=== PATIENT | male | born 1965 | race American Indian/Alaskan Native ===

== ENCOUNTER 2017-12-02 20:41 | Emergency (ER) | payer OTHER ==
[2017-12-02 20:54] VITALS: BP 128/91
[2017-12-02 21:21] LABS: Basophils # (Auto) 0.1 K/mm3 (0.0-0.1); Basophils % (Auto) 0.7 % (0.0-1.8); Eosinophils # (Auto) 0.2 K/mm3 (0.0-0.4); Eosinophils % (Auto) 2.7 % (0.0-4.3); Hematocrit 42.4 % (35.5-45.6); Hemoglobin 14.6 gm/dl (11.8-15.2); Lymphocytes # (Auto) 2.1 K/mm3 (1.2-5.4); Lymphocytes % (Auto) 28.9 % (13.4-35.0); Mean Corpuscular HGB Conc 35 % (32-34); Mean Corpuscular Hemoglobin 31 pg (28-32); Mean Corpuscular Volume 90 fl (84-94); Monocytes # (Auto) 0.3 K/mm3 (0.0-0.8); Monocytes % (Auto) 4.6 % (0.0-7.3); Platelet Count 269 K/mm3 (140-440); Red Blood Count 4.71 M/mm3 (3.65-5.03); Red Cell Distribution Width 12.4 % (13.2-15.2)
[2017-12-02 21:32] LABS: BUN/Creatinine Ratio 13; Blood Urea Nitrogen 16 mg/dL (9-20); Calcium 9.6 mg/dL (8.4-10.2); Hemolysis Index 8
[2017-12-02 22:04] LABS: Bilirubin,Urine NEG (Negative); Blood,Urine NEG (Negative); Color,Urine Straw (Yellow); Mucus,Urine FEW /HPF; Protein,Urine <15 mg/dL mg/dL (Negative); Urobilinogen,Urine < 2.0 mg/dL (<2.0); WBC,Urine < 1.0 /HPF (0.0-6.0)
[2017-12-03] MEDS ORDERED: NACL 0.9% 1000 ML 1,000 ML IV ONE (02:28)
[2017-12-03] MEDS ORDERED: HumuLIN R IV ONE ×2 (02:29→05:59)
[2017-12-03] MEDS ORDERED: NACL 0.9% 1000 ML 2,000 ML IV ONE (02:53)
--- NOTE | 2017-12-03 03:08 | Emergency Department Report ---
HPI - General Chief Complaint: Weakness Time Seen by Provider: 12/03/17 00:50 - HPI HPI: The patient is a 52-year-old male who presents for evaluation of lightheadedness. The patient reports 1 week of lightheadedness, severe, exacerbated with exertion or standing, improved with lying down, and associated with dryness in the mouth, polyuria, and weakness. The patient denies fever, neck pain, parasthesias, dyspnea, cough, hemoptysis, palpitations, dizziness, syncope, unilateral leg swelling, calf muscle pain. Patient also denies cocaine or other stimulant use, history of DVT or PE, recent immobilization, or history of cancer. ED Past Medical Hx - Past Medical History Previous Medical History?: Yes Hx Diabetes: Yes - Surgical History Past Surgical History?: No - Social History Smoking Status: Current Every Day Smoker Substance Use Type: Alcohol, Marijuana ED Review of Systems ROS: Stated complaint: DEHYDRATION/WEAK Other details as noted in HPI Constitutional: reports lightheadedness denies: fever ENT: denies: throat or neck pain Respiratory: denies: cough, shortness of breath Cardiovascular: denies: chest pain Endocrine: Reports polyuria denies unexplained weight loss or gain Gastrointestinal: denies: abdominal pain, nausea Genitourinary: denies: dysuria Musculoskeletal: denies: leg swelling Skin: denies: rash Neurological: denies: headache Hematological/Lymphatic: denies: easy bleeding or easy bruising Psych: denies sadness or hopelessness Physical Exam - Physical Exam Vital Signs: Vital Signs 12/02/17 12/02/17 20:51 20:53 Temperature 98.4 F 98.4 F Pulse Rate 83 83 Respiratory 16 16 Rate Blood Pressure 128/91 Blood Pressure 128/91 [Right] O2 Sat by Pulse 100 100 Oximetry Physical Exam: General: well-nourished, well-developed, no acute distress Head: Normocephalic, atraumatic Eyes: normal sclera ENT: Mucous membranes are pale and dry Neck: No neck stiffness, no cervical adenopathy Respiratory: Breath sounds equal bilaterally, no wheezing, rales, or rhonchi Cardio: S1 and S2 present, no murmurs, rubs, gallops, capillary refill is delayed Abdomen: Normoactive bowel sounds, soft abdomen, no rigidity, no guarding or rebound tenderness Chest WALL/Back: No tenderness to palpation of the chest wall, no CVA tenderness with percussion Musc: No pitting edema Skin: No rash Neuro: no facial drooping, normal speech Psych: Normal affect ED Course Vital Signs 12/02/17 12/02/17 20:51 20:53 Temperature 98.4 F 98.4 F Pulse Rate 83 83 Respiratory 16 16 Rate Blood Pressure 128/91 Blood Pressure 128/91 [Right] O2 Sat by Pulse 100 100 Oximetry ED Medical Decision Making - Lab Data Result diagrams: 12/02/17 21:05 12/02/17 21:05 - Medical Decision Making The patient was seen and examined by myself. The patient is placed on a panel monitor and continuous pulse ox. On initial evaluation, the patient was found to be in no distress. Evaluation orders are placed. IV access is established and the patient is given 1 L normal saline fluid bolus for treatment of his dehydration. Lab results revealed elevated blood sugar of 524, and otherwise labs were non-concerning including WBC, hemoglobin, hematocrit, electrolytes, renal function, LFTs, lipase, and urinalysis. The patient is given IV insulin for treatment of hyperglycemia. The patient was reevaluated and reported that their symptoms were markedly improved. The patient is stable for discharge with outpatient follow-up. The patient is given follow-up and return instructions. The patient expressed understanding and agreed with the plan. The patient is discharged in stable condition. Critical care attestation.: If time is entered above; I have spent that time in minutes in the direct care of this critically ill patient, excluding procedure time. ED Disposition Clinical Impression: Dehydration, Acute hyperglycemia, Orthostatic lightheadedness Disposition: - TO HOME OR SELFCARE Is pt being admited?: No Does the pt Need Aspirin: No Condition: Fair Instructions: Diabetic Hyperglycemia (ED), Dehydration (ED) Referrals: PRIMARY CARE, [Primary Care Provider] - 3-5 Days Time of Disposition: 05:58
== END 2017-12-03 06:16 | disposition home or self-care (01) ==
LOC: ED 20:41
DX: E86.0 Dehydration (principal); E11.65 Type 2 diabetes mellitus with hyperglycemia; F17.200 Nicotine dependence, unspecified, uncomplicated; F12.10 Cannabis abuse, uncomplicated
CPT/HCPCS: 36415; 80048; 81001; 82962; 85025; 96361; 96374; 96376; 99284; J7030; J1815

== ENCOUNTER 2017-12-05 13:49 | Emergency (ER) | payer OTHER ==
[2017-12-05 14:38] LABS: Basophils % (Auto) 0.6 % (0.0-1.8); Eosinophils # (Auto) 0.1 K/mm3 (0.0-0.4); Eosinophils % (Auto) 1.8 % (0.0-4.3); Hematocrit 37.1 % (35.5-45.6); Hemoglobin 12.9 gm/dl (11.8-15.2); Lymphocytes # (Auto) 1.2 K/mm3 (1.2-5.4); Lymphocytes % (Auto) 19.5 % (13.4-35.0); Mean Corpuscular HGB Conc 35 % (32-34); Mean Corpuscular Hemoglobin 32 pg (28-32); Mean Corpuscular Volume 91 fl (84-94); Monocytes # (Auto) 0.3 K/mm3 (0.0-0.8); Monocytes % (Auto) 5.3 % (0.0-7.3); Platelet Count 220 K/mm3 (140-440); Red Blood Count 4.08 M/mm3 (3.65-5.03); Red Cell Distribution Width 12.5 % (13.2-15.2)
[2017-12-05 14:57] LABS: BUN/Creatinine Ratio 11; Blood Urea Nitrogen 12 mg/dL (9-20); Calcium 8.8 mg/dL (8.4-10.2); Hemolysis Index 7
[2017-12-05 15:17] LABS: Bilirubin,Urine NEG (Negative); Blood,Urine NEG (Negative); Color,Urine Straw (Yellow); Protein,Urine <15 mg/dL mg/dL (Negative); WBC,Urine < 1.0 /HPF (0.0-6.0)
[2017-12-05] MEDS ORDERED: HumuLIN R IV ONE ×2 (16:35→19:14)
[2017-12-05] MEDS ORDERED: NACL 0.9% 1000 ML 1,000 ML IV ONE ×3 (16:35→19:14)
--- NOTE | 2017-12-05 16:47 | Emergency Department Report ---
- General Chief complaint: Weakness Stated complaint: DEHYDRATED Time Seen by Provider: 12/05/17 16:35 Source: patient, old records reviewed Mode of arrival: Ambulatory Limitations: No Limitations - History of Present Illness Initial comments: 52-year-old male with a past medical history diabetes type 2 (on insulin) presents to the hospital with complaints of generalized weakness, decreased appetite, polyuria, increased frequency for the past week. Patient was here on December 03 with hyperglycemia. Glucose in the 500's at that time. He received insulin and IV fluids and was discharged home. Patient states at that time he was taking his insulin prior to presenting to the ED. However, the past 2 days he has not taken any insulin because he has not been eating due to lack of appetite. Patient is supposed to take his 70/30 insulin 35 units with dinner. He does not check his sugars will monitor his response to treatment. He does not follow up with a primary care doctor. Patient denies nausea, vomiting, fever, or dysuria. Does complain of some mild paresthesias to feet. - Related Data Previous Rx's Medication Instructions Recorded Last Taken Type Blood Sugar Diagnostic [Test 1 each MC PRN #90 strip 12/05/17 Unknown Rx Strips] Insulin NPH/Regular [Novolin 70/30] 30 unit SQ BIDDIAB #30 day 12/05/17 Unknown Rx Syringe and Needle,Insulin,1Ml 1 each MC BID #60 disp.syrin 12/05/17 Unknown Rx [Insulin Syringe/Needle 1 ML] Allergies Allergy/AdvReac Type Severity Reaction Status Date / Time No Known Allergies Allergy Unverified 12/02/17 20:55 ED Review of Systems ROS: Stated complaint: DEHYDRATED Other details as noted in HPI Comment: All other systems reviewed and negative ED Past Medical Hx - Past Medical History Hx Diabetes: Yes - Surgical History Past Surgical History?: No - Social History Smoking Status: Current Every Day Smoker Substance Use Type: Alcohol - Medications Home Medications: Home Medications Medication Instructions Recorded Confirmed Last Taken Type Blood Sugar Diagnostic [Test 1 each MC PRN #90 strip 12/05/17 Unknown Rx Strips] Insulin NPH/Regular [Novolin 70/30] 30 unit SQ BIDDIAB #30 day 12/05/17 Unknown Rx Syringe and Needle,Insulin,1Ml 1 each MC BID #60 disp.syrin 12/05/17 Unknown Rx [Insulin Syringe/Needle 1 ML] ED Physical Exam - General Limitations: No Limitations - Other Other exam information: General: No limitations, patient is alert in no acute distress Head exam: Atraumatic, normocephalic Eyes exam: Normal appearance, ENT: Moist mucous membrane, dry mucous membranes Neck exam: Normal inspection, full range of motion Respiratory exam: Clear to auscultation bilateral, no wheezes, rales, crackles Cardiovascular: Normal rate and rhythm, normal heart sounds Abdomen: Soft, nondistended, and nontender, with normal bowel sounds, no rebound, or guarding Extremity: Full range of motion normal inspection no deformity Back: Normal Inspection, full range of motion, no tenderness Neurologic: Alert, oriented x3, cranial nerves intact, no motor or sensory deficit Psychiatric: normal affect, normal mood Skin: Warm, dry, intact ED Course Vital Signs 12/05/17 12/05/17 12/05/17 14:04 16:12 16:58 Temperature 98.6 F 98.3 F Pulse Rate 81 75 Respiratory 20 15 Rate Blood Pressure 127/79 Blood Pressure 185/95 [Left] O2 Sat by Pulse 97 100 99 Oximetry 12/05/17 12/05/17 12/05/17 17:00 17:16 17:19 Temperature Pulse Rate 71 Respiratory 15 15 Rate Blood Pressure 185/93 173/102 Blood Pressure 173/102 [Left] O2 Sat by Pulse 99 99 100 Oximetry 12/05/17 12/05/17 12/05/17 17:30 17:46 18:00 Temperature Pulse Rate Respiratory Rate Blood Pressure 173/102 173/102 185/101 Blood Pressure [Left] O2 Sat by Pulse 99 100 99 Oximetry 12/05/17 12/05/17 12/05/17 18:16 18:30 18:46 Temperature Pulse Rate Respiratory Rate Blood Pressure 185/101 185/101 185/101 Blood Pressure [Left] O2 Sat by Pulse 100 99 99 Oximetry 12/05/17 12/05/17 12/05/17 18:57 19:00 19:16 Temperature Pulse Rate 61 Respiratory 15 Rate Blood Pressure 182/97 182/97 Blood Pressure 170/109 [Left] O2 Sat by Pulse 98 100 98 Oximetry 12/05/17 19:44 Temperature Pulse Rate Respiratory Rate Blood Pressure 127/84 Blood Pressure [Left] O2 Sat by Pulse 98 Oximetry ED Medical Decision Making - Lab Data Result diagrams: 12/05/17 14:07 12/05/17 14:07 Lab Results 12/05/17 12/05/17 12/05/17 Range/Units 14:02 14:07 14:07 WBC 6.4 (4.5-11.0) K/mm3 RBC 4.08 (3.65-5.03) M/mm3 Hgb 12.9 (11.8-15.2) gm/dl Hct 37.1 (35.5-45.6) % MCV 91 (84-94) fl MCH 32 (28-32) pg MCHC 35 H (32-34) % RDW 12.5 L (13.2-15.2) % Plt Count 220 (140-440) K/mm3 Lymph % (Auto) 19.5 (13.4-35.0) % [place] % (Auto) 5.3 (0.0-7.3) % Eos % (Auto) 1.8 (0.0-4.3) % Baso % (Auto) 0.6 (0.0-1.8) % Lymph # 1.2 (1.2-5.4) K/mm3 [place]ps # 0.3 (0.0-0.8) K/mm3 Eos # 0.1 (0.0-0.4) K/mm3 Baso # 0.0 (0.0-0.1) K/mm3 Seg Neutrophils % 72.8 H (40.0-70.0) % Seg Neutrophils # 4.7 (1.8-7.7) K/mm3 VBG pH (7.320-7.420) Sodium 124 L (137-145) mmol/L Potassium 3.8 D (3.6-5.0) mmol/L Chloride 82.2 L (98-107) mmol/L Carbon Dioxide 29 (22-30) mmol/L Anion Gap 17 mmol/L BUN 12 (9-20) mg/dL Creatinine 1.1 (0.8-1.5) mg/dL Estimated GFR > 60 ml/min BUN/Creatinine Ratio 11 % Glucose 793 H* (75-100) mg/dL POC Glucose > 500 H (70-105) Calcium 8.8 (8.4-10.2) mg/dL Urine Color (Yellow) Urine Turbidity (Clear) Urine pH (5.0-7.0) Ur Specific [place] (1.003-1.030) Urine Protein (Negative) mg/dL Urine Glucose (UA) (Negative) mg/dL Urine Ketones (Negative) mg/dL Urine Blood (Negative) Urine Nitrite (Negative) Urine Bilirubin (Negative) Urine Urobilinogen (<2.0) mg/dL Ur Leukocyte Esterase (Negative) Urine WBC (Auto) (0.0-6.0) /HPF Urine RBC (Auto) (0.0-6.0) /HPF 12/05/17 12/05/17 12/05/17 Range/Units 14:07 15:00 18:39 WBC (4.5-11.0) K/mm3 RBC (3.65-5.03) M/mm3 Hgb (11.8-15.2) gm/dl Hct (35.5-45.6) % MCV (84-94) fl MCH (28-32) pg MCHC (32-34) % RDW (13.2-15.2) % Plt Count (140-440) K/mm3 Lymph % (Auto) (13.4-35.0) % [place] % (Auto) (0.0-7.3) % Eos % (Auto) (0.0-4.3) % Baso % (Auto) (0.0-1.8) % Lymph # (1.2-5.4) K/mm3 [place] # (0.0-0.8) K/mm3 Eos # (0.0-0.4) K/mm3 Baso # (0.0-0.1) K/mm3 Seg Neutrophils % (40.0-70.0) % Seg Neutrophils # (1.8-7.7) K/mm3 VBG pH 7.376 (7.320-7.420) Sodium (137-145) mmol/L Potassium (3.6-5.0) mmol/L Chloride (98-107) mmol/L Carbon Dioxide (22-30) mmol/L Anion Gap mmol/L BUN (9-20) mg/dL Creatinine (0.8-1.5) mg/dL Estimated GFR ml/min BUN/Creatinine Ratio % Glucose (75-100) mg/dL POC Glucose 347 H (70-105) Calcium (8.4-10.2) mg/dL Urine Color Straw (Yellow) Urine Turbidity Clear (Clear) Urine pH 6.0 (5.0-7.0) Ur Specific [place] 1.029 (1.003-1.030) Urine Protein <15 mg/dl (Negative) mg/dL Urine Glucose (UA) >=500 (Negative) mg/dL Urine Ketones Neg (Negative) mg/dL Urine Blood Neg (Negative) Urine Nitrite Neg (Negative) Urine Bilirubin Neg (Negative) Urine Urobilinogen 2.0 (<2.0) mg/dL Ur Leukocyte Esterase Neg (Negative) Urine WBC (Auto) < 1.0 (0.0-6.0) /HPF Urine RBC (Auto) 1.0 (0.0-6.0) /HPF - Medical Decision Making Hyperglycemia secondary to insulin noncompliance Patient is not in DKA Glucose improves with normal saline boluses and a total of 22 units of insulin to the 100 range Pt should be taking bid dosing of 70/30 insulin, This was discussed with hospitalist Dr. Mari who suggested 30 units BID. Pt counseled on the importance of being compliant with medication, importance of checking his sugar, importance of compliance with diabetic diet, and importance of follow-up for further monitoring and medication adjustment. It is likely also started to develop a diabetic neuropathy. Patient will be discharged home. Elevated bp reading Pt has several elevated blood pressure measurements documented by the nurse however, patient presented with normal blood pressure and at the end of treatment he has normal blood pressures without BP treatment therefore I question the validity of these readings - Differential Diagnosis DKA, hyperglycemia, HNNK, medication noncompliance Critical Care Time: No Critical care attestation.: If time is entered above; I have spent that time in minutes in the direct care of this critically ill patient, excluding procedure time. ED Disposition Clinical Impression: Uncontrolled diabetes mellitus, Noncompliance with medication regimen, Dehydration Disposition: DC-01 TO HOME OR SELFCARE Is pt being admited?: No Does the pt Need Aspirin: No Condition: Stable Instructions: Diabetes Mellitus Type 2 in Adults (ED) Additional Instructions: Take the medication as prescribed. Follow up with the doctor or clinic provided. Return if symptoms worsen as indicated by your discharge instructions. Continue to monitor your sugars at home and eat a diabetic appropriate diet. Take your insulin 70/30 twice a day Prescriptions: Blood Sugar Diagnostic [Test Strips] 1 each PRN #90 strip Insulin NPH/Regular [Novolin 70/30] 30 unit SQ BIDDIAB #30 day Syringe and Needle,Insulin,1Ml [Insulin Syringe/Needle 1 ML] 1 each BID #60 disp.[email or web address] Referrals: [facility] [Provider Group] - 2-3 Days NANETTE SANTANA MD [Staff Physician] - 2-3 Days Time of Disposition: 22:14
[2017-12-06 00:39] VITALS: BP 127/88
== END 2017-12-05 23:00 | disposition home or self-care (01) ==
LOC: ED 13:49
DX: E86.0 Dehydration (principal); E11.9 Type 2 diabetes mellitus without complications; F17.200 Nicotine dependence, unspecified, uncomplicated
CPT/HCPCS: 36415; 80048; 81001; 82805; 82962; 85025; 96361; 96374; 96376; 99284; J7030; J1815

== ENCOUNTER 2020-03-28 18:58 | Inpatient (IN) | payer OTHER ==
--- NOTE | 2020-03-28 19:17 | Emergency Department Report ---
Blank Doc - Documentation Documentation: [id number] with chest pain, SOB, and n/v. This initial assessment/diagnostic orders/clinical plan/treatment(s) is/are subject to change based on patient's health status, clinical progression and re- assessment by fellow clinical providers in the ED. Further treatment and workup at subsequent clinical providers discretion. Patient/guardians urged not to elope from the ED as their condition may be serious if not clinically assessed and managed. Initial orders include: 1- Patient sent to [facility] for further evaluation and treatment 2- cardiac workup
[2020-03-28 19:48] LABS: Basophils % (Auto) 0.3 % (0.0-1.8); Eosinophils % (Auto) 0.2 % (0.0-4.3); Hematocrit 41.8 % (35.5-45.6); Hemoglobin 14.5 gm/dl (11.8-15.2); Lymphocytes % (Auto) 9.2 % (13.4-35.0); Mean Corpuscular HGB Conc 35 % (32-34); Mean Corpuscular Volume 93 fl (84-94); Monocytes # (Auto) 0.5 K/mm3 (0.0-0.8); Monocytes % (Auto) 4.6 % (0.0-7.3); Platelet Count 263 K/mm3 (140-440); Red Blood Count 4.51 M/mm3 (3.65-5.03); Red Cell Distribution Width 12.7 % (13.2-15.2)
[2020-03-28 19:59] LABS: INR 1.03 (0.87-1.13)
[2020-03-28 20:00] LABS: Partial Thromboplastin Time 26.7 Sec. (24.2-36.6)
--- NOTE | 2020-03-28 20:00 | XRay Report ---
CHEST 1 VIEW INDICATION: Chest Pain. COMPARISON: 12/17/2017. FINDINGS: Support devices: None. Heart: Normal. Lungs/Pleura: No acute pulmonary or pleural findings. IMPRESSION: 1. No acute findings. Signer Name: Jamie Monroe MD Signed: 03/28/2020 7:56 PM Workstation Name: [id number]
[2020-03-28 20:12] LABS: Calcium 9.2 mg/dL (8.4-10.2)
[2020-03-29] MEDS ORDERED: SODIUM CHLORIDE 0.9% 1000 ML 1,000 ML IV ONE ×4 (09:03→21:14)
[2020-03-29] MEDS ORDERED: ONDANSETRON 4 MG/2 ML INJ ONE (10:11)
[2020-03-29] MEDS ORDERED: ONDANSETRON 4 MG/2 ML INJ IV ONE ×2 (10:25→21:08)
--- NOTE | 2020-03-29 11:41 | Cat Scan Report ---
CT ABDOMEN AND PELVIS WITHOUT CONTRAST INDICATION / CLINICAL INFORMATION: flank and right pelvic pain. TECHNIQUE: Axial CT images were obtained through the abdomen and pelvis without IV contrast. All CT scans at this location are performed using CT dose reduction for ALARA by means of automated exposure control. COMPARISON: None FINDINGS: LOWER CHEST: Unremarkable LIVER: Unremarkable GALLBLADDER/BILIARY TREE: Unremarkable PANCREAS: Unremarkable SPLEEN: Unremarkable ADRENALS: Unremarkable KIDNEYS / URETER: Tiny nonobstructing right renal calculus is present. There is a small left renal hy podensity, which is too small to further characterize, though statistically reflect a cyst. URINARY BLADDER: Unremarkable REPRODUCTIVE ORGANS: Unremarkable STOMACH / SMALL BOWEL: Stomach and small bowel are normal in caliber. No evidence of bowel inflammati on. COLON: The colon is unremarkable. The appendix is normal in caliber. LYMPH NODES: No significant adenopathy. VASCULATURE: No significant abnormality. OTHER: No free air, free fluid, or focal fluid collection is identified. SKELETAL SYSTEM: Healing right L1-L3 right transverse processes fractures. There is also a healing fr acture of the right posterior 12th rib. No acute osseous abnormality. IMPRESSION: 1. Healing subacute fractures of the right L1-L3 transverse processes on the right and right posterio r 12th rib. 2. No acute abnormality of the abdomen or pelvis. 3. Tiny nonobstructing right renal calculus. No urolithiasis or hydronephrosis. Signer Name: Kaveh Mariee MD Signed: 03/29/2020 11:37 AM Workstation Name: [id number]
[2020-03-29] MEDS ORDERED: INSULIN REGULAR, HUMAN 100 UNIT/ML 3ML VIAL IV ONE (13:54)
--- NOTE | 2020-03-29 14:05 | Emergency Department Report ---
ED General Adult HPI - General Chief complaint: Chest Pain Stated complaint: CHEST PAIN Time Seen by Provider: 03/28/20 19:16 Source: patient Mode of arrival: Stretcher Limitations: No Limitations - History of Present Illness Initial comments: The patient presents to the emergency department the chief complaint of chest pain that started last night. Patient states the pain was sharp in nature was located on the left side of his chest without radiation. Patient states he is currently chest pain-free has been chest pain-free for the last 2 to 3 hours. Patient does endorse the use of cocaine yesterday. Patient denies shortness of breath, abdominal pain, or headache. -: Sudden Location: chest Severity scale (0 -10): 6 Quality: sharp Consistency: constant Improves with: none Worsens with: none Associated Symptoms: denies other symptoms Treatments Prior to Arrival: none - Related Data Previous Rx's Medication Instructions Recorded Last Taken Type Aspirin [Aspirin BABY CHEW TAB] 81 mg PO QDAY #30 tab.chew 12/18/17 Unknown Rx Blood Sugar Diagnostic [Test 1 each MC PRN #90 strip 12/18/17 Unknown Rx Strips] Insulin NPH/Regular [NovoLIN 70/30] 30 unit SQ BIDDIAB #30 day 12/18/17 Unknown Rx Syringe and Needle,Insulin,1Ml 1 each MC BID #60 disp.syrin 12/18/17 Unknown Rx [Insulin Syringe/Needle 1 ML] Allergies Allergy/AdvReac Type Severity Reaction Status Date / Time No Known Allergies Allergy Unverified 12/02/17 20:55 ED Review of Systems ROS: Stated complaint: CHEST PAIN Other details as noted in HPI Constitutional: denies: chills, fever Eyes: denies: eye pain, eye discharge, vision change ENT: denies: ear pain, throat pain Respiratory: denies: cough, shortness of breath, wheezing Cardiovascular: chest pain. denies: palpitations Endocrine: no symptoms reported Gastrointestinal: denies: abdominal pain, nausea, diarrhea Genitourinary: denies: urgency, dysuria Musculoskeletal: denies: back pain, joint swelling, arthralgia Skin: denies: rash, lesions Neurological: denies: headache, weakness, paresthesias Psychiatric: denies: anxiety, depression Hematological/Lymphatic: denies: easy bleeding, easy bruising ED Past Medical Hx - Past Medical History Previous Medical History?: Yes Hx Diabetes: Yes - Surgical History Past Surgical History?: No - Social History Smoking Status: Current Every Day Smoker Substance Use Type: Cocaine - Medications Home Medications: Home Medications Medication Instructions Recorded Confirmed Last Taken Type Aspirin [Aspirin BABY CHEW TAB] 81 mg PO QDAY #30 tab.chew 12/18/17 Unknown Rx Blood Sugar Diagnostic [Test 1 each MC PRN #90 strip 12/18/17 Unknown Rx Strips] Insulin NPH/Regular [NovoLIN 70/30] 30 unit SQ BIDDIAB #30 day 12/18/17 Unknown Rx Syringe and Needle,Insulin,1Ml 1 each MC BID #60 disp.syrin 12/18/17 Unknown Rx [Insulin Syringe/Needle 1 ML] ED Physical Exam - General Limitations: No Limitations General appearance: alert, in no apparent distress - Head Head exam: Present: atraumatic, normocephalic - Eye Eye exam: Present: normal appearance, PERRL, EOMI - ENT ENT exam: Present: mucous membranes moist - Neck Neck exam: Present: normal inspection - Respiratory Respiratory exam: Present: normal lung sounds bilaterally. Absent: respiratory distress - Cardiovascular Cardiovascular Exam: Present: regular rate, normal rhythm. Absent: systolic murmur, diastolic murmur, rubs, gallop - GI/Abdominal GI/Abdominal exam: Present: soft, normal bowel sounds. Absent: distended, tenderness - Rectal Rectal exam: Present: deferred - Extremities Exam Extremities exam: Present: normal inspection - Back Exam Back exam: Present: normal inspection - Neurological Exam Neurological exam: Present: alert, oriented X3, CN II-XII intact. Absent: motor sensory deficit - Psychiatric Psychiatric exam: Present: normal affect, normal mood - Skin Skin exam: Present: warm, dry, intact, normal color. Absent: rash ED Course Vital Signs 03/28/20 03/29/20 19:17 07:49 Temperature 97.6 F 97.7 F Pulse Rate 79 98 H Respiratory 18 20 Rate Blood Pressure 144/86 Blood Pressure 154/82 [Right] O2 Sat by Pulse 97 98 Oximetry ED Medical Decision Making - Lab Data Result diagrams: 03/28/20 19:24 03/29/20 16:22 Lab Results 03/28/20 03/28/20 03/28/20 Range/Units 19:24 19:24 19:24 WBC 10.6 (4.5-11.0) K/mm3 RBC 4.51 (3.65-5.03) M/mm3 Hgb 14.5 (11.8-15.2) gm/dl Hct 41.8 (35.5-45.6) % MCV 93 (84-94) fl MCH 32 (28-32) pg MCHC 35 H (32-34) % RDW 12.7 L (13.2-15.2) % Plt Count 263 (140-440) K/mm3 Lymph % (Auto) 9.2 L (13.4-35.0) % [place] % (Auto) 4.6 (0.0-7.3) % Eos % (Auto) 0.2 (0.0-4.3) % Baso % (Auto) 0.3 (0.0-1.8) % Lymph # (Auto) 1.0 L (1.2-5.4) K/mm3 [place] # (Auto) 0.5 (0.0-0.8) K/mm3 Eos # (Auto) 0.0 (0.0-0.4) K/mm3 Baso # (Auto) 0.0 (0.0-0.1) K/mm3 Seg Neutrophils % 85.7 H (40.0-70.0) % Seg Neutrophils # 9.1 H (1.8-7.7) K/mm3 PT 13.3 (12.2-14.9) Sec. INR 1.03 (0.87-1.13) APTT 26.7 (24.2-36.6) Sec. VBG pH (7.320-7.420) Sodium 132 L (137-145) mmol/L Potassium 4.6 (3.6-5.0) mmol/L Chloride 87.2 L (98-107) mmol/L Carbon Dioxide 24 (22-30) mmol/L Anion Gap 25 mmol/L BUN 52 H (9-20) mg/dL Creatinine 1.8 H (0.8-1.3) mg/dL Estimated GFR 48 ml/min BUN/Creatinine Ratio 29 % Glucose 590 H* (75-100) mg/dL POC Glucose (70-105) mg/dL Calcium 9.2 (8.4-10.2) mg/dL Total Bilirubin 0.70 (0.1-1.2) mg/dL AST 12 (5-40) units/L ALT 15 (7-56) units/L Alkaline Phosphatase 59 (35-129) units/L Troponin T 0.028 (0.00-0.029) ng/mL Total Protein 6.7 (6.3-8.2) g/dL Albumin 4.0 (3.9-5) g/dL Albumin/Globulin Ratio 1.5 % Urine Bilirubin (Negative) Urine RBC (Auto) (0.0-6.0) /HPF U Epithel Cells (Auto) (0-13.0) /HPF Urine Opiates Screen Urine Methadone Screen Ur Barbiturates Screen Ur Phencyclidine Scrn Ur Amphetamines Screen U Benzodiazepines Scrn U Marijuana (THC) Screen 03/29/20 03/29/20 03/29/20 Range/Units 00:07 07:55 11:30 WBC (4.5-11.0) K/mm3 RBC (3.65-5.03) M/mm3 Hgb (11.8-15.2) gm/dl Hct (35.5-45.6) % MCV (84-94) fl MCH (28-32) pg MCHC (32-34) % RDW (13.2-15.2) % Plt Count (140-440) K/mm3 Lymph % (Auto) (13.4-35.0) % [place] % (Auto) (0.0-7.3) % Eos % (Auto) (0.0-4.3) % Baso % (Auto) (0.0-1.8) % Lymph # (Auto) (1.2-5.4) K/mm3 [place] # (Auto) (0.0-0.8) K/mm3 Eos # (Auto) (0.0-0.4) K/mm3 Baso # (Auto) (0.0-0.1) K/mm3 Seg Neutrophils % (40.0-70.0) % Seg Neutrophils # (1.8-7.7) K/mm3 PT (12.2-14.9) Sec. INR (0.87-1.13) APTT (24.2-36.6) Sec. VBG pH 7.283 L (7.320-7.420) Sodium (137-145) mmol/L Potassium (3.6-5.0) mmol/L Chloride (98-107) mmol/L Carbon Dioxide (22-30) mmol/L Anion Gap mmol/L BUN (9-20) mg/dL Creatinine (0.8-1.3) mg/dL Estimated GFR ml/min BUN/Creatinine Ratio % Glucose (75-100) mg/dL POC Glucose 479 H (70-105) mg/dL Calcium (8.4-10.2) mg/dL Total Bilirubin (0.1-1.2) mg/dL AST (5-40) units/L ALT (7-56) units/L Alkaline Phosphatase (35-129) units/L Troponin T 0.017 (0.00-0.029) ng/mL Total Protein (6.3-8.2) g/dL Albumin (3.9-5) g/dL Albumin/Globulin Ratio % Urine Bilirubin (Negative) Urine RBC (Auto) (0.0-6.0) /HPF U Epithel Cells (Auto) (0-13.0) /HPF Urine Opiates Screen Urine Methadone Screen Ur Barbiturates Screen Ur Phencyclidine Scrn Ur Amphetamines Screen U Benzodiazepines Scrn U Marijuana (THC) Screen 03/29/20 03/29/20 03/29/20 Range/Units 13:31 16:22 18:20 WBC (4.5-11.0) K/mm3 RBC (3.65-5.03) M/mm3 Hgb (11.8-15.2) gm/dl Hct (35.5-45.6) % MCV (84-94) fl MCH (28-32) pg MCHC (32-34) % RDW (13.2-15.2) % Plt Count (140-440) K/mm3 Lymph % (Auto) (13.4-35.0) % [place] % (Auto) (0.0-7.3) % Eos % (Auto) (0.0-4.3) % Baso % (Auto) (0.0-1.8) % Lymph # (Auto) (1.2-5.4) K/mm3 [place] # (Auto) (0.0-0.8) K/mm3 Eos # (Auto) (0.0-0.4) K/mm3 Baso # (Auto) (0.0-0.1) K/mm3 Seg Neutrophils % (40.0-70.0) % Seg Neutrophils # (1.8-7.7) K/mm3 PT (12.2-14.9) Sec. INR (0.87-1.13) APTT (24.2-36.6) Sec. VBG pH (7.320-7.420) Sodium 144 D (137-145) mmol/L Potassium 4.3 (3.6-5.0) mmol/L Chloride 98.1 (98-107) mmol/L Carbon Dioxide 26 (22-30) mmol/L Anion Gap 24 mmol/L BUN 59 H (9-20) mg/dL Creatinine 2.0 H (0.8-1.3) mg/dL Estimated GFR 42 ml/min BUN/Creatinine Ratio 30 % Glucose 395 H (75-100) mg/dL POC Glucose (70-105) mg/dL Calcium 9.3 (8.4-10.2) mg/dL Total Bilirubin (0.1-1.2) mg/dL AST (5-40) units/L ALT (7-56) units/L Alkaline Phosphatase (35-129) units/L Troponin T < 0.010 (0.00-0.029) ng/mL Total Protein (6.3-8.2) g/dL Albumin (3.9-5) g/dL Albumin/Globulin Ratio % Urine Bilirubin Neg (Negative) Urine RBC (Auto) 3.0 (0.0-6.0) /HPF U Epithel Cells (Auto) < 1.0 (0-13.0) /HPF Urine Opiates Screen Urine Methadone Screen Ur Barbiturates Screen Ur Phencyclidine Scrn Ur Amphetamines Screen U Benzodiazepines Scrn U Marijuana (THC) Screen 03/29/20 Range/Units 18:20 WBC (4.5-11.0) K/mm3 RBC (3.65-5.03) M/mm3 Hgb (11.8-15.2) gm/dl Hct (35.5-45.6) % MCV (84-94) fl MCH (28-32) pg MCHC (32-34) % RDW (13.2-15.2) % Plt Count (140-440) K/mm3 Lymph % (Auto) (13.4-35.0) % [place] % (Auto) (0.0-7.3) % Eos % (Auto) (0.0-4.3) % Baso % (Auto) (0.0-1.8) % Lymph # (Auto) (1.2-5.4) K/mm3 [place] # (Auto) (0.0-0.8) K/mm3 Eos # (Auto) (0.0-0.4) K/mm3 Baso # (Auto) (0.0-0.1) K/mm3 Seg Neutrophils % (40.0-70.0) % Seg Neutrophils # (1.8-7.7) K/mm3 PT (12.2-14.9) Sec. INR (0.87-1.13) APTT (24.2-36.6) Sec. VBG pH (7.320-7.420) Sodium (137-145) mmol/L Potassium (3.6-5.0) mmol/L Chloride (98-107) mmol/L Carbon Dioxide (22-30) mmol/L Anion Gap mmol/L BUN (9-20) mg/dL Creatinine (0.8-1.3) mg/dL Estimated GFR ml/min BUN/Creatinine Ratio % Glucose (75-100) mg/dL POC Glucose (70-105) mg/dL Calcium (8.4-10.2) mg/dL Total Bilirubin (0.1-1.2) mg/dL AST (5-40) units/L ALT (7-56) units/L Alkaline Phosphatase (35-129) units/L Troponin T (0.00-0.029) ng/mL Total Protein (6.3-8.2) g/dL Albumin (3.9-5) g/dL Albumin/Globulin Ratio % Urine Bilirubin (Negative) Urine RBC (Auto) (0.0-6.0) /HPF U Epithel Cells (Auto) (0-13.0) /HPF Urine Opiates Screen Negative Urine Methadone Screen Negative Ur Barbiturates Screen Negative Ur Phencyclidine Scrn Negative Ur Amphetamines Screen Negative U Benzodiazepines Scrn Negative U Marijuana (THC) Screen Negative - EKG Data -: EKG Interpreted by [place] EKG shows normal: sinus rhythm Rate: normal - Radiology Data Radiology results: report reviewed - Medical Decision Making Patient had a venous pH of 7.28 8 AM this morning. Patient was given IV fluids IV insulin. The patient was not in DKA. Patient had a normal anion gap and normal CO2. Results were discussed with the patient including negative cardiac enzymes x3 OVER 24 hours Critical care attestation.: If time is entered above; I have spent that time in minutes in the direct care of this critically ill patient, excluding procedure time. ED Disposition Clinical Impression: Chest pain, non-cardiac, Hyperglycemia, Cocaine adverse reaction Disposition: DC- TO HOME OR SELFCARE Is pt being admited?: No Does the pt Need Aspirin: No Condition: Stable Instructions: Chest Pain (ED), Nonspecific Chest Pain, Adult, [id number], Hyperglycemia Additional Instructions: return if worse Referrals: PRIMARY CARE,MD [Primary Care Provider] - 3-5 Days [facility] [Provider Group] - 3-5 Days [facility] [Provider Group] - 3-5 Days [facility] [place] [Outside] - 3-5 Days Time of Disposition: 19:25 Heart Score - HEART Score History: Slightly suspicious EKG: Normal Age: 45-65 Risk factors: 1-2 risk factors Troponin: < normal limit HEART Score: 2 - Critical Actions Critical Actions: 0-3 pts:0.9-1.7%risk of adverse cardiac event.Candidate for discharge
[2020-03-29 16:58] LABS: Calcium 9.3 mg/dL (8.4-10.2)
[2020-03-29 18:42] LABS: Amphetamine Screen,Urine Negative; Benzodiazepines Screen,Urine Negative; Cannabinoid Screen,Urine Negative; Methadone Screen,Urine Negative; Opiate Screen,Urine Negative
[2020-03-29 19:06] LABS: Bilirubin,Urine NEG (Negative); Blood,Urine SM (Negative); Color,Urine Straw (Yellow); Urobilinogen,Urine < 2.0 mg/dL (<2.0); WBC,Urine < 1.0 /HPF (0.0-6.0)
[2020-03-29 19:41] LABS: Cocaine Screen,Urine Positive
[2020-03-29] MEDS ORDERED: HYDROmorphone 2 MG/1 ML INJ IV ONE (21:43)
[2020-03-29 21:49] LABS: Calcium 9.2 mg/dL (8.4-10.2)
[2020-03-29] MEDS ORDERED: INSULIN REGULAR, HUMAN 100 UNITS in SODIUM CHLORIDE 0.9% 99 ML IV SCH (22:00)
[2020-03-29] MEDS ORDERED: D5W/0.45% NACL/KCL 20 MEQ 20 MEQ/1,000 ML BAG IV SCH (22:00)
[2020-03-29 23:05] LABS: Creatine Kinase MB 3.2 ng/mL (0.0-4.0)
[2020-03-29] MEDS ORDERED: NITROGLYCERIN 0.4 MG TAB SUBL SL PRN (23:10)
[2020-03-29] MEDS ORDERED: ACETAMINOPHEN 325 MG TAB PO PRN (23:10)
--- NOTE | 2020-03-29 23:22 | History and Physical Report ---
History of Present Illness Date of examination: 03/29/20 Date of admission: 03/29/20 21:21 Chief complaint: Chest pain Nausea and Vomiting History of present illness: 54-year-old male who presents to the emergency room today complaining of chest pain which started overnight. Chest pain is said to be left-sided. Denies any radiation. Pain is said to be sharp located left side of his chest without any radiation. Patient admits to using cocaine about 24 hours ago. He denies any shortness of breath, no fever or chills, no headache or dizziness. He was evaluated in the emergency room and later became chest pain-free for couple of hours and was about to be discharged home when he suddenly started having nausea and vomiting. He denies any abdominal pain. Further work-up in the emergency room reveals elevated blood glucose of about 590. Discharge was then put on hold and patient placed on IV fluid and insulin drip. Patient be admitted with hyperglycemic hyperosmolar state Past History Past Medical History: diabetes Past Surgical History: No surgical history Social history: smoking, other (Cocaine abuse) Family history: no significant family history Medications and Allergies Allergies Allergy/AdvReac Type Severity Reaction Status Date / Time No Known Allergies Allergy Unverified 12/02/17 20:55 Home Medications Medication Instructions Recorded Confirmed Last Taken Type Aspirin [Aspirin BABY CHEW TAB] 81 mg PO QDAY #30 tab.chew 12/18/17 Unknown Rx Blood Sugar Diagnostic [Test 1 each PRN #90 strip 12/18/17 Unknown Rx Strips] Insulin NPH/Regular [NovoLIN 70/30] 30 unit SQ BIDDIAB #30 day 12/18/17 Unknown Rx Syringe and Needle,Insulin,1Ml 1 each BID #60 disp.syrin 12/18/17 Unknown Rx [Insulin Syringe/Needle 1 ML] Active Meds: Active Medications Acetaminophen (Acetaminophen 325 Mg Tab) 650 mg PO Q6H PRN PRN Reason: Pain, Mild (1-3) Aspirin (Aspirin Ec 325 Mg Tab) 325 mg PO QDAY GARETH Dextrose (Dextrose 50% In Water (25gm) 50 Ml Syringe) 50 ml IV Q30MIN PRN; Protocol PRN Reason: Hypoglycemia Enoxaparin Sodium (Enoxaparin 40 Mg/0.4 Ml Inj) 40 mg SUB-Q QDAY@2200 GARETH; Protocol Insulin Human Regular 100 (units/ Sodium Chloride) 100 mls @ 1 mls/hr IV TITR GARETH; Protocol Potassium Chloride/Dextrose/Sod Cl (D5w/0.45% Nacl/Kcl 20 Meq) 20 meq in 1,000 mls @ 125 mls/hr IV DIRECT GARETH Dextrose/Sodium Chloride (D5ns) 1,000 mls @ 150 mls/hr IV DIRECT GARETH Morphine Sulfate (Morphine 4 Mg/1 Ml Inj) 2 mg IV Q5MIN PRN PRN Reason: Chest Pain Nitroglycerin (Nitroglycerin 0.4 Mg Tab Subl) 0.4 mg SL Q5M PRN PRN Reason: Chest Pain Sodium Chloride (Sodium Chloride 0.9% 10 Ml Flush Syringe) 10 ml IV BID GARETH Sodium Chloride (Sodium Chloride 0.9% 10 Ml Flush Syringe) 10 ml IV PRN PRN PRN Reason: LINE FLUSH Sodium Chloride (Sodium Chloride 0.9% 10 Ml Flush Syringe) 10 ml IV PRN PRN PRN Reason: LINE FLUSH Review of Systems Constitutional: no fever, no chills Cardiovascular: chest pain, no palpitations Respiratory: no cough, no shortness of breath Gastrointestinal: nausea, vomiting, no abdominal pain, no diarrhea Genitourinary Male: no dysuria, no hematuria, no flank pain Musculoskeletal: no neck pain, no low back pain Integumentary: no rash, no pruritis Neurological: no headaches, no confusion Psychiatric: no anxiety, no depression Exam - Constitutional Vitals: Temp Pulse Resp BP Pulse Ox 97.7 F 103 H 11 L 157/94 98 03/29/20 07:49 03/29/20 15:46 03/29/20 16:00 03/29/20 16:00 03/29/20 16:00 General appearance: Present: no acute distress, well-nourished - EENT Eyes: Present: PERRL, EOM intact. Absent: scleral icterus ENT: hearing intact, clear oral mucosa, dentition normal - Neck Neck: Present: supple, normal ROM - Respiratory Respiratory effort: normal Respiratory: bilateral: CTA - Cardiovascular Rhythm: regular Heart Sounds: Present: S1 & S2. Absent: gallop, systolic murmur, diastolic murmur, rub - Extremities Extremities: no ischemia, pulses intact, pulses symmetrical, No edema, normal temperature, normal color, Full ROM Peripheral Pulses: within normal limits - Abdominal General gastrointestinal: Present: soft, non-tender, non-distended, normal bowel sounds. Absent: mass - Integumentary Integumentary: Present: clear, warm, dry. Absent: rash - Musculoskeletal Musculoskeletal: strength equal bilaterally - Psychiatric Psychiatric: appropriate mood/affect, intact judgment & insight, memory intact, cooperative - Neurologic Neurologic: CNII-XII intact, no focal deficits, moves all extremities HEART Score - HEART Score History: Moderately suspicious EKG: Normal Age: 45-65 Risk factors: 1-2 risk factors Troponin: Troponin T 0.019 ng/mL (0.00-0.029) 03/29/20 21:32 Troponin: < normal limit HEART Score: 3 - Critical Actions Critical Actions: 0-3 pts:0.9-1.7%risk of adverse cardiac event.Candidate for discharge Results - Labs CBC & Chem 7: 03/29/20 23:24 03/30/20 01:07 Labs: Abnormal lab results 03/29/20 03/29/20 03/29/20 Range/Units 07:55 11:30 16:22 VBG pH 7.283 L (7.320-7.420) BUN 59 H (9-20) mg/dL Creatinine 2.0 H (0.8-1.3) mg/dL Glucose 395 H (75-100) mg/dL POC Glucose 479 H (70-105) mg/dL Magnesium (1.7-2.3) mg/dL 03/29/20 03/29/20 03/29/20 Range/Units 21:21 21:21 22:44 VBG pH (7.320-7.420) BUN 55 H (9-20) mg/dL Creatinine 2.0 H (0.8-1.3) mg/dL Glucose 397 H (75-100) mg/dL POC Glucose 347 H (70-105) mg/dL Magnesium 2.70 H (1.7-2.3) mg/dL Assessment and Plan - Patient Problems (1) Hyperglycemia Current Visit: Yes Status: Acute Plan to address problem: Patient placed on IV fluid and insulin drip. We will monitor Accu-Cheks accordingly. We will get dietary consult and also check hemoglobin A1c. (2) Chest pain Current Visit: Yes Status: Acute Plan to address problem: Patient is chest pain-free at this time. Chest pain possibly secondary to his cocaine abuse. However, we will check serial cardiac enzymes and also request evaluation by cardiology. (3) DVT prophylaxis Current Visit: Yes Status: Acute Plan to address problem: Patient placed on subcutaneous Lovenox. (4) Full code status Current Visit: Yes Status: Acute Plan to address problem: Patient is a full code
[2020-03-29] MEDS ORDERED: D5W/0.9% NACL 1,000 ML IV SCH (23:45)
[2020-03-29 23:52] LABS: Hematocrit 43.1 % (35.5-45.6); Hemoglobin 14.6 gm/dl (11.8-15.2); Lymphocytes # (Auto) 1.2 K/mm3 (1.2-5.4); Lymphocytes % (Auto) 7.5 % (13.4-35.0); Mean Corpuscular HGB Conc 34 % (32-34); Mean Corpuscular Volume 93 fl (84-94); Monocytes # (Auto) 0.8 K/mm3 (0.0-0.8); Monocytes % (Auto) 4.9 % (0.0-7.3); Platelet Count 283 K/mm3 (140-440); Red Blood Count 4.65 M/mm3 (3.65-5.03); Red Cell Distribution Width 12.9 % (13.2-15.2)
[2020-03-29 23:58] LABS: Calcium 9.1 mg/dL (8.4-10.2)
[2020-03-30] MEDS ORDERED: HYDROmorphone 2 MG/1 ML INJ IV ONE (00:42)
[2020-03-30] MEDS: MORPHINE 4 MG/1 ML INJ IV PRN ×2 (00:48→18:36)
[2020-03-30 01:43] LABS: Calcium 8.8 mg/dL (8.4-10.2)
[2020-03-30 05:43] LABS: Basophils % (Auto) 0.2 % (0.0-1.8); Hematocrit 42.4 % (35.5-45.6); Hemoglobin 14.4 gm/dl (11.8-15.2); Lymphocytes # (Auto) 1.3 K/mm3 (1.2-5.4); Lymphocytes % (Auto) 7.4 % (13.4-35.0); Mean Corpuscular HGB Conc 34 % (32-34); Mean Corpuscular Volume 92 fl (84-94); Monocytes # (Auto) 0.9 K/mm3 (0.0-0.8); Monocytes % (Auto) 4.8 % (0.0-7.3); Platelet Count 266 K/mm3 (140-440); Red Blood Count 4.59 M/mm3 (3.65-5.03); Red Cell Distribution Width 13.1 % (13.2-15.2)
[2020-03-30 06:00] LABS: Calcium 9.4 mg/dL (8.4-10.2)
[2020-03-30 06:03] LABS: INR 0.95 (0.87-1.13)
[2020-03-30 06:43] LABS: Chol/HDL Ratio 6.42 %
--- NOTE | 2020-03-30 07:42 | Progress Note ---
Assessment and Plan Assessment and plan: --Hyperglycemia/hyperosmolar state Patient is on insulin drip started by admitting physician Patient's anion gap is normal, blood sugars reasonable control Diabetic education, nutrition education Possible home health nurse for disease monitoring at the time of discharge --Dehydration secondary to hyperglycemia/hyperosmolar state Aggressive IV hydration, DC insulin drip Transition to long-acting, DC n.p.o. start ADA diet --Chest pain; with multiple risk factors Diabetes mellitus, dyslipidemia, history of tobacco use, age Follow serial cardiac enzymes, echocardiogram And cardiology evaluation and recommendations aspirin, nitrates and statins, Pain medications --Acute kidney injury; vasomotor nephropathy and Prerenal azotemia dehydration due to severe hyperglycemia Gentle hydration, monitor renal function avoid nephrotoxins Nephrology consult if no improvement --Hyponatremia; DC normal saline, recommend free water Closely monitor electrolytes --Dyslipidemia; I will start Lipitor 40 mg nightly I recommend low-cholesterol diet --Mild leukocytosis; Probably secondary to dehydration, check for infectious process I will trend WBC, patient has no fever, chest x-ray no acute abnormality Urine analysis no evidence of UTI, CT abdomen no evidence of infectious process We will closely monitor, check blood and urine cultures --Cocaine abuse; Patient's chest pain probably related to cocaine use Strongly counseled the patient to quit recreational drug use --Ongoing tobacco use; Smoking cessation counseling done Advised nicotine patch as needed --DVT prophylaxis; Placed on Lovenox We will closely monitor the patient and adjust the management as needed Plan of care discussed with the patient and nurse Disposition; follow clinically, follow consultants evaluation recommendation Discharge when medically stable History Interval history: I have seen and examined the patient in ER awaiting room assignment Patient was admitted with hyperglycemia, placed on insulin drip Blood sugars are reasonable levels Also has atypical chest pain, with mild elevation of troponin and multiple risk factors Patient feels slightly better denies any chest pain or shortness of breath Vital signs noted Hospitalist Physical - Constitutional Vitals: Temp Pulse Resp BP Pulse Ox 97.7 F 92 H 13 177/93 88 03/29/20 07:49 03/30/20 02:31 03/30/20 02:31 03/30/20 06:16 03/30/20 04:30 General appearance: Present: no acute distress, well-nourished - EENT Eyes: Present: PERRL, EOM intact - Neck Neck: Present: supple, normal ROM - Respiratory Respiratory effort: normal Respiratory: bilateral: diminished, negative: rales, rhonchi, wheezing - Cardiovascular Rhythm: regular Heart Sounds: Present: S1 & S2 - Extremities Extremities: no ischemia, No edema - Abdominal General gastrointestinal: soft, non-tender, non-distended, normal bowel sounds - Integumentary Integumentary: Present: clear, warm - Psychiatric Psychiatric: appropriate mood/affect, cooperative - Neurologic Neurologic: moves all extremities HEART Score - HEART Score EKG: Normal Age: 45-65 Risk factors: 1-2 risk factors Troponin: Troponin T 0.030 ng/mL (0.00-0.029) H D 03/30/20 05:16 Troponin: < normal limit - Critical Actions Critical Actions: 0-3 pts:0.9-1.7%risk of adverse cardiac event.Candidate for discharge Results - Labs CBC & Chem 7: 03/30/20 05:16 03/30/20 13:28 Labs: Laboratory Last Values WBC 18.3 K/mm3 (4.5-11.0) H 03/30/20 05:16 RBC 4.59 M/mm3 (3.65-5.03) 03/30/20 05:16 Hgb 14.4 gm/dl (11.8-15.2) 03/30/20 05:16 Hct 42.4 % (35.5-45.6) 03/30/20 05:16 MCV 92 fl (84-94) 03/30/20 05:16 MCH 31 pg (28-32) 03/30/20 05:16 MCHC 34 % (32-34) 03/30/20 05:16 RDW 13.1 % (13.2-15.2) L 03/30/20 05:16 Plt Count 266 K/mm3 (140-440) 03/30/20 05:16 Lymph % (Auto) 7.4 % (13.4-35.0) L 03/30/20 05:16 [place] % (Auto) 4.8 % (0.0-7.3) 03/30/20 05:16 Eos % (Auto) 0.0 % (0.0-4.3) 03/30/20 05:16 Baso % (Auto) 0.2 % (0.0-1.8) 03/30/20 05:16 Lymph # (Auto) 1.3 K/mm3 (1.2-5.4) 03/30/20 05:16 [place] # (Auto) 0.9 K/mm3 (0.0-0.8) H 03/30/20 05:16 Eos # (Auto) 0.0 K/mm3 (0.0-0.4) 03/30/20 05:16 Baso # (Auto) 0.0 K/mm3 (0.0-0.1) 03/30/20 05:16 Seg Neutrophils % 87.6 % (40.0-70.0) H 03/30/20 05:16 Seg Neutrophils # 16.0 K/mm3 (1.8-7.7) H 03/30/20 05:16 PT 12.5 Sec. (12.2-14.9) 03/30/20 05:16 INR 0.95 (0.87-1.13) 03/30/20 05:16 APTT 26.7 Sec. (24.2-36.6) 03/28/20 19:24 VBG pH 7.283 (7.320-7.420) L 03/29/20 11:30 Sodium 151 mmol/L (137-145) H 03/30/20 05:16 Potassium 4.3 mmol/L (3.6-5.0) 03/30/20 05:16 Chloride 109.0 mmol/L (98-107) H 03/30/20 05:16 Carbon Dioxide 30 mmol/L (22-30) D 03/30/20 05:16 Anion Gap 16 mmol/L 03/30/20 05:16 BUN 45 mg/dL (9-20) H 03/30/20 05:16 Creatinine 1.7 mg/dL (0.8-1.3) H 03/30/20 05:16 Estimated GFR 51 ml/min 03/30/20 05:16 BUN/Creatinine Ratio 26 % 03/30/20 05:16 Glucose 170 mg/dL (75-100) H 03/30/20 05:16 POC Glucose 130 mg/dL (70-105) H 03/30/20 06:22 Hemoglobin A1c 10.4 % (4-6) H 03/29/20 23:24 Calcium 9.4 mg/dL (8.4-10.2) 03/30/20 05:16 Phosphorus 4.00 mg/dL (2.5-4.5) 03/29/20 23:24 Magnesium 2.60 mg/dL (1.7-2.3) H 03/29/20 23:24 Total Bilirubin 0.70 mg/dL (0.1-1.2) 03/28/20 19:24 AST 12 units/L (5-40) 03/28/20 19:24 ALT 15 units/L (7-56) 03/28/20 19:24 Alkaline Phosphatase 59 units/L (35-129) 03/28/20 19:24 Total Creatine Kinase 115 units/L (55-170) 03/29/20 21:32 CK-MB (CK-2) 3.2 ng/mL (0.0-4.0) 03/29/20 21:32 CK-MB (CK-2) Rel Index 2.7 (0-4) 03/29/20 21:32 Troponin T 0.030 ng/mL (0.00-0.029) H D 03/30/20 05:16 Total Protein 6.7 g/dL (6.3-8.2) 03/28/20 19:24 Albumin 4.0 g/dL (3.9-5) 03/28/20 19:24 Albumin/Globulin Ratio 1.5 % 03/28/20 19:24 Triglycerides 287 mg/dL (2-149) H 03/30/20 05:16 Cholesterol 257 mg/dL (50-199) H 03/30/20 05:16 LDL Cholesterol Direct 157 mg/dL (50-130) H 03/30/20 05:16 HDL Cholesterol 40 mg/dL (40-59) 03/30/20 05:16 Cholesterol/HDL Ratio 6.42 % 03/30/20 05:16 Urine Color Straw (Yellow) 03/29/20 18:20 Urine Turbidity Clear (Clear) 03/29/20 18:20 Urine pH 5.0 (5.0-7.0) 03/29/20 18:20 Ur Specific [place] 1.021 (1.003-1.030) 03/29/20 18:20 Urine Protein 30 mg/dl mg/dL (Negative) 03/29/20 18:20 Urine Glucose (UA) >=500 mg/dL (Negative) 03/29/20 18:20 Urine Ketones 20 mg/dL (Negative) 03/29/20 18:20 Urine Blood Sm (Negative) 03/29/20 18:20 Urine Nitrite Neg (Negative) 03/29/20 18:20 Urine Bilirubin Neg (Negative) 03/29/20 18:20 Urine Urobilinogen < 2.0 mg/dL (<2.0) 03/29/20 18:20 Ur Leukocyte Esterase Neg (Negative) 03/29/20 18:20 Urine WBC (Auto) < 1.0 /HPF (0.0-6.0) 03/29/20 18:20 Urine RBC (Auto) 3.0 /HPF (0.0-6.0) 03/29/20 18:20 U Epithel Cells (Auto) < 1.0 /HPF (0-13.0) 03/29/20 18:20 Urine Opiates Screen Negative 03/29/20 18:20 Urine Methadone Screen Negative 03/29/20 18:20 Ur Barbiturates Screen Negative 03/29/20 18:20 Ur Phencyclidine Scrn Negative 03/29/20 18:20 Ur Amphetamines Screen Negative 03/29/20 18:20 U Benzodiazepines Scrn Negative 03/29/20 18:20 Urine Cocaine Screen Positive 03/29/20 18:20 U Marijuana (THC) Screen Negative 03/29/20 18:20 Drugs of Abuse Note Disclamer 03/29/20 18:20 Freeman/IV: IV Catheter Type [Left Forearm INT / Saline Lock ] Active Medications - Current Medications Current Medications: Generic Name Dose Route Start Last Admin Trade Name Freq PRN Reason Stop Dose Admin Acetaminophen 650 mg 03/29/20 23:10 Acetaminophen 325 Mg Tab PO Q6H PRN Pain, Mild (1-3) Aspirin 325 mg 03/30/20 10:00 Aspirin Ec 325 Mg Tab PO QDAY GARETH Dextrose 50 ml 03/29/20 21:14 Dextrose 50% In Water (25gm) 50 Ml Syringe IV Q30MIN PRN Hypoglycemia Protocol Enoxaparin Sodium 40 mg 03/30/20 22:00 Enoxaparin 40 Mg/0.4 Ml Inj SUB-Q QDAY@2200 GARETH Protocol Insulin Human Regular 100 100 mls @ 1 mls/hr 03/29/20 22:00 03/30/20 06:25 units/ Sodium Chloride IV 2 units/hr TITR GARETH 2 mls/hr Titration Protocol 1 UNITS/HR Potassium Chloride/Dextrose/Sod Cl 20 meq in 1,000 mls @ 125 mls/hr 03/29/20 22:00 03/30/20 04:11 D5w/0.45% Nacl/Kcl 20 Meq IV 125 mls/hr DIRECT GARETH Administration Dextrose/Sodium Chloride 1,000 mls @ 150 mls/hr 03/29/20 23:45 D5ns IV DIRECT GARETH Labetalol HCl 10 mg 03/30/20 07:33 Labetalol 20 Mg/4 Ml Inj IV Q4H PRN Hypertension Morphine Sulfate 2 mg 03/29/20 23:10 03/30/20 00:48 Morphine 4 Mg/1 Ml Inj IV 2 mg Q5MIN PRN Administration Chest Pain Nitroglycerin 0.4 mg 03/29/20 23:10 Nitroglycerin 0.4 Mg Tab Subl SL Q5M PRN Chest Pain Sodium Chloride 10 ml 03/30/20 10:00 Sodium Chloride 0.9% 10 Ml Flush Syringe IV BID GARETH Sodium Chloride 10 ml 03/29/20 23:02 Sodium Chloride 0.9% 10 Ml Flush Syringe IV PRN PRN LINE FLUSH
[2020-03-30] MEDS: ASPIRIN EC 325 MG TAB PO SCH (09:44)
[2020-03-30] MEDS ORDERED: INSULIN NPH/REGULAR 70/30 INJ SUB-Q ONE (10:32)
[2020-03-30 10:53] LABS: Creatine Kinase MB 3.1 ng/mL (0.0-4.0)
--- NOTE | 2020-03-30 13:25 | Consultation ---
History of Present Illness Consult date: 03/30/20 Consult reason: chest pain History of present illness: Patient is a 54-year-old man with a history of diabetes and cocaine abuse. He denies any prior cardiac history. He states that he was on a crack binge last night, following which he developed chest pain, prompting his presentation to the emergency room. There is no history of exertional chest pain or dyspnea. Serial ECGs in the emergency room showing normal sinus rhythm, normal ECG with no ST or T wave changes. Troponin levels are unremarkable. Echocardiogram done today shows normal left ventricular systolic function with ejection fraction 55 to 60%, no significant valvular abnormalities. On his laboratory values, the most significant finding is a leukocytosis of 15- 18,000, dehydration with a sodium of 151, BUN 59 and creatinine 2.0 Past History Past Medical History: diabetes Past Surgical History: No surgical history Social history: smoking, other (Cocaine abuse) Family history: no significant family history Medications and Allergies Allergies Allergy/AdvReac Type Severity Reaction Status Date / Time No Known Allergies Allergy Unverified 12/02/17 20:55 Home Medications Medication Instructions Recorded Confirmed Last Taken Type Aspirin [Aspirin BABY CHEW TAB] 81 mg PO QDAY #30 tab.chew 12/18/17 Unknown Rx Blood Sugar Diagnostic [Test 1 each MC PRN #90 strip 12/18/17 Unknown Rx Strips] Insulin NPH/Regular [NovoLIN 70/30] 30 unit SQ BIDDIAB #30 day 12/18/17 Unknown Rx Syringe and Needle,Insulin,1Ml 1 each MC BID #60 disp.syrin 12/18/17 Unknown Rx [Insulin Syringe/Needle 1 ML] Active Meds: Active Medications Acetaminophen (Acetaminophen 325 Mg Tab) 650 mg PO Q6H PRN PRN Reason: Pain, Mild (1-3) Aspirin (Aspirin Ec 325 Mg Tab) 325 mg PO QDAY GARETH Last Admin: 03/30/20 09:44 Dose: Not Given Documented by: Dextrose (Dextrose 50% In Water (25gm) 50 Ml Syringe) 50 ml IV Q30MIN PRN; Protocol PRN Reason: Hypoglycemia Enoxaparin Sodium (Enoxaparin 40 Mg/0.4 Ml Inj) 40 mg SUB-Q QDAY@2200 GARETH; Protocol Dextrose/Sodium Chloride (D5ns) 1,000 mls @ 150 mls/hr IV DIRECT GARETH Insulin Human Isoph/Insulin Regular (Insulin Nph/Regular 70/30 Inj) 15 unit SUB-Q BIDDIAB GARETH Insulin Human Lispro (Insulin Lispro 100 Unit/Ml Vial 3 Ml) 0 unit SUB-Q ACHS GARETH; Protocol Labetalol HCl (Labetalol 20 Mg/4 Ml Inj) 10 mg IV Q4H PRN PRN Reason: Hypertension Morphine Sulfate (Morphine 4 Mg/1 Ml Inj) 2 mg IV Q5MIN PRN PRN Reason: Chest Pain Last Admin: 03/30/20 00:48 Dose: 2 mg Documented by: Nitroglycerin (Nitroglycerin 0.4 Mg Tab Subl) 0.4 mg SL Q5M PRN PRN Reason: Chest Pain Sodium Chloride (Sodium Chloride 0.9% 10 Ml Flush Syringe) 10 ml IV BID GARETH Last Admin: 03/30/20 09:44 Dose: Not Given Documented by: Sodium Chloride (Sodium Chloride 0.9% 10 Ml Flush Syringe) 10 ml IV PRN PRN PRN Reason: LINE FLUSH Review of Systems Cardiovascular: chest pain, shortness of breath, no orthopnea, no palpitations, no rapid/irregular heart beat, no edema, no syncope, no lightheadedness Physical Examination Vital Signs Temp Pulse Resp BP Pulse Ox 97.6 F 79 18 144/86 97 03/28/20 19:17 03/28/20 19:17 03/28/20 19:17 03/28/20 19:17 03/28/20 19:17 General appearance: no acute distress HEENT: Positive: PERRL Neck: Positive: neck supple Cardiac: Positive: Reg Rate and Rhythm Lungs: Positive: Decreased Breath Sounds Neuro: Positive: Grossly Intact Abdomen: Positive: Soft Male genitourinary: Positive: deferred Skin: Positive: Clear Extremities: Absent: edema Results 03/30/20 05:16 03/30/20 05:16 Cardiac Enzymes 03/29/20 03/30/20 Range/Units 21:32 09:57 CK-MB (CK-2) 3.2 3.1 (0.0-4.0) ng/mL Coagulation 03/30/20 Range/Units 05:16 PT 12.5 (12.2-14.9) Sec. INR 0.95 (0.87-1.13) Lipids 03/30/20 Range/Units 05:16 Triglycerides 287 H (2-149) mg/dL Cholesterol 257 H (50-199) mg/dL HDL Cholesterol 40 (40-59) mg/dL Cholesterol/HDL Ratio 6.42 % CBC 03/29/20 03/30/20 Range/Units 23:24 05:16 WBC 15.7 H 18.3 H (4.5-11.0) K/mm3 RBC 4.65 4.59 (3.65-5.03) M/mm3 Hgb 14.6 14.4 (11.8-15.2) gm/dl Hct 43.1 42.4 (35.5-45.6) % Plt Count 283 266 (140-440) K/mm3 Lymph # (Auto) 1.2 1.3 (1.2-5.4) K/mm3 [place] # (Auto) 0.8 0.9 H (0.0-0.8) K/mm3 Eos # (Auto) 0.0 0.0 (0.0-0.4) K/mm3 Baso # (Auto) 0.0 0.0 (0.0-0.1) K/mm3 Comprehensive Metabolic Panel 03/29/20 03/29/20 03/29/20 Range/Units 16:22 21:21 23:24 Sodium 144 D 143 147 H (137-145) mmol/L Potassium 4.3 4.9 4.9 (3.6-5.0) mmol/L Chloride 98.1 98.9 102.5 (98-107) mmol/L Carbon Dioxide 26 23 22 (22-30) mmol/L BUN 59 H 55 H 54 H (9-20) mg/dL Creatinine 2.0 H 2.0 H 1.9 H (0.8-1.3) mg/dL Glucose 395 H 397 H 382 H (75-100) mg/dL Calcium 9.3 9.2 9.1 (8.4-10.2) mg/dL 03/30/20 03/30/20 Range/Units 01:07 05:16 Sodium 148 H 151 H (137-145) mmol/L Potassium 4.4 4.3 (3.6-5.0) mmol/L Chloride 106.3 109.0 H (98-107) mmol/L Carbon Dioxide 23 30 D (22-30) mmol/L BUN 51 H 45 H (9-20) mg/dL Creatinine 1.9 H 1.7 H (0.8-1.3) mg/dL Glucose 321 H 170 H (75-100) mg/dL Calcium 8.8 9.4 (8.4-10.2) mg/dL EKG interpretations - Telemetry EKG Rhythm: Sinus Rhythm Assessment and Plan - Patient Problems (1) Chest pain Current Visit: Yes Status: Acute Plan to address problem: 34-year-old man who presents with chest pain associated with crack cocaine use. Serial ECGs and troponin levels are normal. Echocardiogram is unremarkable. Most pertinent laboratory findings include marked dehydration, and severe leukocytosis with a white count of 18,000. Eventually, the patient will benefit from from stress testing to assess chest pain for cardiac etiology, but this will be deferred until he has had optimal work-up and management of his leukocytosis and dehydration.
[2020-03-30] MEDS: INSULIN LISPRO 100 UNIT/ML VIAL 3 mL SUB-Q SCH ×3 (13:50→22:19)
[2020-03-30 14:02] LABS: Calcium 9.1 mg/dL (8.4-10.2)
[2020-03-30 20:47] LABS: Hematocrit 43.7 % (35.5-45.6); Hemoglobin 14.9 gm/dl (11.8-15.2); Mean Corpuscular HGB Conc 34 % (32-34); Mean Corpuscular Volume 92 fl (84-94); Platelet Count 229 K/mm3 (140-440); Red Blood Count 4.75 M/mm3 (3.65-5.03); Red Cell Distribution Width 12.5 % (13.2-15.2)
[2020-03-30 21:02] LABS: BUN/Creatinine Ratio 25; Blood Urea Nitrogen 35 mg/dL (9-20); Calcium 9.2 mg/dL (8.4-10.2); Hemolysis Index 15
[2020-03-30] MEDS: ENOXAPARIN 40 MG/0.4 ML INJ SUB-Q SCH (22:16)
[2020-03-30 22:18] LABS: Total Cells Counted 100
[2020-03-30 22:22] LABS: Platelet Estimate Consistent w Auto
[2020-03-31 00:44] LABS: BUN/Creatinine Ratio 24; Blood Urea Nitrogen 33 mg/dL (9-20); Calcium 9.3 mg/dL (8.4-10.2); Hemolysis Index 2
[2020-03-31] MEDS: MORPHINE 4 MG/1 ML INJ IV PRN (06:03)
[2020-03-31] MEDS: INSULIN NPH/REGULAR 70/30 INJ SUB-Q SCH ×2 (09:04→17:30)
[2020-03-31] MEDS: ASPIRIN EC 325 MG TAB PO SCH (09:06)
[2020-03-31 09:33] LABS: Hematocrit 43.7 % (35.5-45.6); Hemoglobin 14.7 gm/dl (11.8-15.2); Mean Corpuscular HGB Conc 34 % (32-34); Mean Corpuscular Volume 93 fl (84-94); Platelet Count 214 K/mm3 (140-440); Red Blood Count 4.69 M/mm3 (3.65-5.03); Red Cell Distribution Width 12.9 % (13.2-15.2)
[2020-03-31 09:53] LABS: Albumin 3.8 g/dL (3.9-5); Calcium 9.2 mg/dL (8.4-10.2)
[2020-03-31] MEDS: INSULIN LISPRO 100 UNIT/ML VIAL 3 mL SUB-Q SCH ×4 (10:31→21:25)
[2020-03-31 10:50] LABS: Total Cells Counted 100
[2020-03-31 10:51] LABS: Platelet Estimate Consistent w Auto; RBC Morphology Normal
--- NOTE | 2020-03-31 11:56 | Progress Note ---
Assessment and Plan - Patient Problems (1) Leukocytosis Current Visit: Yes Status: Acute Plan to address problem: Patient presents with marked leukocytosis, chills, low-grade temperature of 99.9. Laboratory values also show marked dehydration and prerenal azotemia. It will be prudent to work him up for sepsis or COVID-19 pneumonia. Recommend IV rehydration therapy as indicated. (2) Chest pain Current Visit: Yes Status: Acute Plan to address problem: Chest pain is atypical, serial ECGs are negative. We will contemplate elective cardiac chest pain work-up after the patient's pyrexia, leukocytosis, dehydration ultimately resolved. Subjective Date of service: 03/31/20 Interval history: The patient complains of chills, and the maximum temperature for the past 24 hours was 99.9 Fahrenheit. It is also of note that he has a persistent leukocytosis with white count elevating to 20,000 yesterday. Objective Vital Signs Temp Pulse Resp BP BP Pulse Ox 03/31/20 08:00 98.2 F 85 18 161/94 96 03/31/20 06:05 89 184/96 03/31/20 05:00 97.6 F 184/96 03/31/20 03:46 85 100 03/30/20 23:39 97.8 F 90 17 160/82 91 03/30/20 23:01 77 20 133/91 03/30/20 22:00 90 18 03/30/20 20:15 99.9 F H 86 17 176/92 94 03/30/20 18:41 92 H 188/120 03/30/20 18:40 98 F 92 H 18 188/120 99 03/30/20 18:27 92 H 188/120 100 03/30/20 12:02 121/72 - Physical Examination General: No Apparent Distress HEENT: Positive: PERRL Neck: Positive: neck supple Cardiac: Positive: Reg Rate and Rhythm Lungs: Positive: Decreased Breath Sounds Neuro: Positive: Grossly Intact Abdomen: Positive: Soft Skin: Positive: Clear Extremities: Absent: edema - Labs and Meds Cardiac Enzymes 03/31/20 Range/Units 07:58 AST 14 (5-40) units/L CBC 03/30/20 03/31/20 Range/Units 20:24 07:58 WBC 20.1 H 13.6 H (4.5-11.0) K/mm3 RBC 4.75 4.69 (3.65-5.03) M/mm3 Hgb 14.9 14.7 (11.8-15.2) gm/dl Hct 43.7 43.7 (35.5-45.6) % Plt Count 229 214 (140-440) K/mm3 Comprehensive Metabolic Panel 03/30/20 03/30/20 03/30/20 Range/Units 13:28 20:24 23:54 Sodium 154 H 149 H 148 H (137-145) mmol/L Potassium 4.6 4.1 3.9 (3.6-5.0) mmol/L Chloride 112.4 H 110.3 H 107.6 H (98-107) mmol/L Carbon Dioxide 34 H 27 D 33 H (22-30) mmol/L BUN 37 H 35 H 33 H (9-20) mg/dL Creatinine 1.7 H 1.4 H 1.4 H (0.8-1.3) mg/dL Glucose 193 H 240 H 238 H (75-100) mg/dL Calcium 9.1 9.2 9.3 (8.4-10.2) mg/dL AST (5-40) units/L ALT (7-56) units/L Alkaline Phosphatase (35-129) units/L Total Protein (6.3-8.2) g/dL Albumin (3.9-5) g/dL 03/31/20 Range/Units 07:58 Sodium 150 H (137-145) mmol/L Potassium 4.2 (3.6-5.0) mmol/L Chloride 104.0 (98-107) mmol/L Carbon Dioxide 30 (22-30) mmol/L BUN 35 H (9-20) mg/dL Creatinine 1.6 H (0.8-1.3) mg/dL Glucose 361 H (75-100) mg/dL Calcium 9.2 (8.4-10.2) mg/dL AST 14 (5-40) units/L ALT 13 (7-56) units/L Alkaline Phosphatase 59 (35-129) units/L Total Protein 6.0 L (6.3-8.2) g/dL Albumin 3.8 L (3.9-5) g/dL
[2020-03-31] MEDS ORDERED: SODIUM CHLORIDE 0.45% 1000 ML IV SOLN IV SCH (14:00)
--- NOTE | 2020-03-31 15:29 | Progress Note ---
Subjective Date of service: 03/31/20 Interval history: Assessment and plan: --Hyperglycemia/hyperosmolar state off insulin drip blood sugars uncontrolled Insulin dose adjusted Patient's anion gap is normal Diabetic education, nutrition education Possible home health nurse for disease monitoring at the time of discharge --Dehydration secondary to hyperglycemia/hyperosmolar state Aggressive IV hydration started on 1/2 NS monitor electrolytes --Chest pain; with multiple risk factors Diabetes mellitus, dyslipidemia, history of tobacco use, age cardiology note reviewed cont. per. cardiology recommendations aspirin, nitrates and statins, Pain medications --Acute kidney injury; improving 2/2 volume depletion Gentle hydration, monitor renal function avoid nephrotoxins Nephrology consult if no improvement --Hypernatremia; recommend free water start 1/2 NS Closely monitor electrolytes --Dyslipidemia; cont. Lipitor 40 mg nightly low-cholesterol diet --Mild leukocytosis; likely reactive trending down Probably secondary to dehydration, check for infectious process patient has no fever, chest x-ray no acute abnormality Urine analysis no evidence of UTI, CT abdomen no evidence of infectious process blood and urine cultures - no growth so far will monitor --Cocaine use; Patient's chest pain probably related to cocaine use Strongly counseled the patient to quit recreational drug use --Ongoing tobacco use; Smoking cessation counseling done Advised nicotine patch as needed --DVT prophylaxis; Placed on Lovenox We will closely monitor the patient and adjust the management as needed Plan of care discussed with the patient and nurse Disposition; follow clinically, follow consultants evaluation recommendation Discharge when medically stable History Interval history: I have seen and examined the patient in ER awaiting room assignment Patient was admitted with hyperglycemia, placed on insulin drip Blood sugars are reasonable levels Also has atypical chest pain, with mild elevation of troponin and multiple risk factors Patient feels slightly better denies any chest pain or shortness of breath Vital signs noted 03/31 patient is A&O. c/o weakness and feeling thirsty. denies CP or sob lab results and cardiology note reviewed Objective - Constitutional Vitals: Vital Signs - 12hr 03/31/20 03/31/20 03/31/20 03:46 05:00 06:05 Temperature 97.6 F Pulse Rate 85 89 Respiratory Rate Blood Pressure 184/96 Blood Pressure 184/96 [Right] O2 Sat by Pulse 100 Oximetry 03/31/20 03/31/20 03/31/20 08:00 12:55 12:58 Temperature 98.2 F 98.1 F Pulse Rate 85 89 89 Respiratory 18 18 Rate Blood Pressure 161/94 166/101 166/101 Blood Pressure [Right] O2 Sat by Pulse 96 93 Oximetry General appearance: Present: no acute distress - EENT Eyes: PERRL, EOM intact ENT: hearing intact - Neck Neck: supple, normal ROM, no masses or JVD - Respiratory Respiratory effort: normal Respiratory: bilateral: CTA - Cardiovascular Rhythm: regular Heart Sounds: Present: S1 & S2 Extremities: No edema - Gastrointestinal General gastrointestinal: Present: soft, non-tender Rectal Exam: deferred - Genitourinary Male genitourinary: deferred - Integumentary Integumentary: clear - Musculoskeletal Musculoskeletal: strength equal bilaterally - Neurologic Neurologic: no focal deficits - Labs CBC & Chem 7: 03/31/20 07:58 03/31/20 07:58 Labs: Abnormal lab results 03/30/20 03/30/20 03/30/20 Range/Units 17:18 20:24 20:24 WBC 20.1 H (4.5-11.0) K/mm3 RDW 12.5 L (13.2-15.2) % Seg Neuts % (Manual) 89.0 H (40.0-70.0) % Lymphocytes % (Manual) 9.0 L (13.4-35.0) % Seg Neutrophils # Man 17.9 H (1.8-7.7) K/mm3 Lymphocytes # (Manual) (1.2-5.4) K/mm3 Sodium 149 H (137-145) mmol/L Chloride 110.3 H (98-107) mmol/L Carbon Dioxide (22-30) mmol/L BUN 35 H (9-20) mg/dL Creatinine 1.4 H (0.8-1.3) mg/dL Glucose 240 H (75-100) mg/dL POC Glucose 178 H (70-105) mg/dL Magnesium (1.7-2.3) mg/dL Total Protein (6.3-8.2) g/dL Albumin (3.9-5) g/dL 03/30/20 03/30/20 03/31/20 Range/Units 21:59 23:54 07:56 WBC (4.5-11.0) K/mm3 RDW (13.2-15.2) % Seg Neuts % (Manual) (40.0-70.0) % Lymphocytes % (Manual) (13.4-35.0) % Seg Neutrophils # Man (1.8-7.7) K/mm3 Lymphocytes # (Manual) (1.2-5.4) K/mm3 Sodium 148 H (137-145) mmol/L Chloride 107.6 H (98-107) mmol/L Carbon Dioxide 33 H (22-30) mmol/L BUN 33 H (9-20) mg/dL Creatinine 1.4 H (0.8-1.3) mg/dL Glucose 238 H (75-100) mg/dL POC Glucose 240 H 303 H (70-105) mg/dL Magnesium (1.7-2.3) mg/dL Total Protein (6.3-8.2) g/dL Albumin (3.9-5) g/dL 03/31/20 03/31/20 03/31/20 Range/Units 07:58 07:58 12:02 WBC 13.6 H (4.5-11.0) K/mm3 RDW 12.9 L (13.2-15.2) % Seg Neuts % (Manual) 94.0 H (40.0-70.0) % Lymphocytes % (Manual) 3.0 L (13.4-35.0) % Seg Neutrophils # Man 12.8 H (1.8-7.7) K/mm3 Lymphocytes # (Manual) 0.4 L (1.2-5.4) K/mm3 Sodium 150 H (137-145) mmol/L Chloride (98-107) mmol/L Carbon Dioxide (22-30) mmol/L BUN 35 H (9-20) mg/dL Creatinine 1.6 H (0.8-1.3) mg/dL Glucose 361 H (75-100) mg/dL POC Glucose 312 H (70-105) mg/dL Magnesium 2.40 H (1.7-2.3) mg/dL Total Protein 6.0 L (6.3-8.2) g/dL Albumin 3.8 L (3.9-5) g/dL HEART Score - HEART Score EKG: Normal Age: 45-65 Risk factors: 1-2 risk factors Troponin: Troponin T 0.024 ng/mL (0.00-0.029) 03/30/20 09:57 Troponin: < normal limit - Critical Actions Critical Actions: 0-3 pts:0.9-1.7%risk of adverse cardiac event.Candidate for discharge
[2020-03-31] MEDS: SODIUM CHLORIDE 0.45% 1000 ML 1,000 ML IV SCH (15:48)
[2020-03-31] MEDS: DEXTROSE 50% IN WATER (25GM) 50 ML SYRINGE IV PRN ×2 (21:21→22:35)
[2020-03-31] MEDS: ENOXAPARIN 40 MG/0.4 ML INJ SUB-Q SCH (21:25)
[2020-04-01] MEDS: SODIUM CHLORIDE 0.45% 1000 ML 1,000 ML IV SCH (01:18)
[2020-04-01] MEDS: MORPHINE 4 MG/1 ML INJ IV PRN (03:52)
[2020-04-01] MEDS ORDERED: cloNIDine 0.2 MG TAB PO ONE (05:55)
[2020-04-01 05:57] LABS: Hematocrit 40.3 % (35.5-45.6); Hemoglobin 13.7 gm/dl (11.8-15.2); Mean Corpuscular HGB Conc 34 % (32-34); Mean Corpuscular Volume 91 fl (84-94); Platelet Count 202 K/mm3 (140-440); Red Blood Count 4.44 M/mm3 (3.65-5.03); Red Cell Distribution Width 12.5 % (13.2-15.2)
[2020-04-01 06:14] LABS: BUN/Creatinine Ratio 18; Blood Urea Nitrogen 24 mg/dL (9-20); Calcium 8.9 mg/dL (8.4-10.2); Hemolysis Index 5
--- NOTE | 2020-04-01 09:26 | Progress Note ---
Assessment and Plan Assessment and plan: --Hyperglycemia/hyperosmolar state off insulin drip blood sugars uncontrolled Insulin dose adjusted Patient's anion gap is normal Diabetic education, nutrition education Possible home health nurse for disease monitoring at the time of discharge --Dehydration secondary to hyperglycemia/hyperosmolar state Aggressive IV hydration started on 1/2 NS monitor electrolytes --Chest pain; with multiple risk factors Diabetes mellitus, dyslipidemia, history of tobacco use, age cardiology note reviewed cont. per. cardiology recommendations aspirin, nitrates and statins, Pain medications --Acute kidney injury; improving 2/2 volume depletion Gentle hydration, monitor renal function avoid nephrotoxins Nephrology consult if no improvement --Hypernatremia; recommend free water start 1/2 NS Closely monitor electrolytes --Dyslipidemia; cont. Lipitor 40 mg nightly low-cholesterol diet --Mild leukocytosis; likely reactive trending down Probably secondary to dehydration, check for infectious process patient has no fever, chest x-ray no acute abnormality Urine analysis no evidence of UTI, CT abdomen no evidence of infectious process blood and urine cultures - no growth so far will monitor --Cocaine use; Patient's chest pain probably related to cocaine use Strongly counseled the patient to quit recreational drug use --Ongoing tobacco use; Smoking cessation counseling done Advised nicotine patch as needed --DVT prophylaxis; Placed on Lovenox We will closely monitor the patient and adjust the management as needed Plan of care discussed with the patient and nurse 04/01/2020. If cardiology with no plans of cardiac evaluation, we will likely discharge. History Interval history: No new issues overnight. Hospitalist Physical - Constitutional Vitals: Temp Pulse Resp BP Pulse Ox 98.6 F 80 17 155/80 95 04/01/20 00:35 04/01/20 03:00 04/01/20 00:35 04/01/20 00:35 04/01/20 00:35 General appearance: Present: no acute distress - EENT Eyes: Present: PERRL, EOM intact ENT: hearing intact, clear oral mucosa, dentition normal - Neck Neck: Present: supple, normal ROM - Respiratory Respiratory effort: normal Respiratory: bilateral: CTA - Cardiovascular Rhythm: regular Heart Sounds: Present: S1 & S2. Absent: gallop, rub - Extremities Extremities: no ischemia, No edema, Full ROM - Abdominal General gastrointestinal: soft, non-tender, non-distended, normal bowel sounds - Integumentary Integumentary: Present: clear, warm, dry - Neurologic Neurologic: CNII-XII intact, moves all extremities HEART Score - HEART Score EKG: Normal Age: 45-65 Risk factors: 1-2 risk factors Troponin: Troponin T 0.024 ng/mL (0.00-0.029) 03/30/20 09:57 Troponin: < normal limit - Critical Actions Critical Actions: 0-3 pts:0.9-1.7%risk of adverse cardiac event.Candidate for discharge Results - Labs CBC & Chem 7: 04/01/20 04:50 04/01/20 04:50 Labs: Laboratory Last Values WBC 9.4 K/mm3 (4.5-11.0) 04/01/20 04:50 RBC 4.44 M/mm3 (3.65-5.03) 04/01/20 04:50 Hgb 13.7 gm/dl (11.8-15.2) 04/01/20 04:50 Hct 40.3 % (35.5-45.6) 04/01/20 04:50 MCV 91 fl (84-94) 04/01/20 04:50 MCH 31 pg (28-32) 04/01/20 04:50 MCHC 34 % (32-34) 04/01/20 04:50 RDW 12.5 % (13.2-15.2) L 04/01/20 04:50 Plt Count 202 K/mm3 (140-440) 04/01/20 04:50 Lymph % (Auto) 7.4 % (13.4-35.0) L 03/30/20 05:16 [place] % (Auto) 4.8 % (0.0-7.3) 03/30/20 05:16 Eos % (Auto) 0.0 % (0.0-4.3) 03/30/20 05:16 Baso % (Auto) 0.2 % (0.0-1.8) 03/30/20 05:16 Lymph # (Auto) 1.3 K/mm3 (1.2-5.4) 03/30/20 05:16 [place] # (Auto) 0.9 K/mm3 (0.0-0.8) H 03/30/20 05:16 Eos # (Auto) 0.0 K/mm3 (0.0-0.4) 03/30/20 05:16 Baso # (Auto) 0.0 K/mm3 (0.0-0.1) 03/30/20 05:16 Add Manual Diff Complete 03/31/20 07:58 Total Counted 100 03/31/20 07:58 Seg Neutrophils % Cadd Operator 03/31/20 07:58 Seg Neuts % (Manual) 94.0 % (40.0-70.0) H 03/31/20 07:58 Lymphocytes % (Manual) 3.0 % (13.4-35.0) L 03/31/20 07:58 Reactive Lymphs % (Man) 2.0 % 03/31/20 07:58 Monocytes % (Manual) 1.0 % (0.0-7.3) 03/31/20 07:58 Nucleated RBC % Not Reportable 03/31/20 07:58 Seg Neutrophils # 16.0 K/mm3 (1.8-7.7) H 03/30/20 05:16 Seg Neutrophils # Man 12.8 K/mm3 (1.8-7.7) H 03/31/20 07:58 Band Neutrophils # 0.0 K/mm3 03/31/20 07:58 Lymphocytes # (Manual) 0.4 K/mm3 (1.2-5.4) L 03/31/20 07:58 Abs React Lymphs (Man) 0.3 K/mm3 03/31/20 07:58 Monocytes # (Manual) 0.1 K/mm3 (0.0-0.8) 03/31/20 07:58 Eosinophils # (Manual) 0.0 K/mm3 (0.0-0.4) 03/31/20 07:58 Basophils # (Manual) 0.0 K/mm3 (0.0-0.1) 03/31/20 07:58 Metamyelocytes # 0.0 K/mm3 03/31/20 07:58 Myelocytes # 0.0 K/mm3 03/31/20 07:58 Promyelocytes # 0.0 K/mm3 03/31/20 07:58 Blast Cells # 0.0 K/mm3 03/31/20 07:58 WBC Morphology Not Reportable 03/31/20 07:58 WBC Morphology TNR 03/31/20 07:58 Hypersegmented Neuts Not Reportable 03/31/20 07:58 Hyposegmented Neuts Not Reportable 03/31/20 07:58 Hypogranular Neuts Not Reportable 03/31/20 07:58 Smudge Cells Not Reportable 03/31/20 07:58 Toxic Granulation Not Reportable 03/31/20 07:58 Toxic Vacuolation Not Reportable 03/31/20 07:58 Dohle Bodies Not Reportable 03/31/20 07:58 Pelger-Huet Anomaly Not Reportable 03/31/20 07:58 Perez Rods Not Reportable 03/31/20 07:58 Platelet Estimate Consistent w auto 03/31/20 07:58 Clumped Platelets Not Reportable 03/31/20 07:58 Plt Clumps, EDTA Not Reportable 03/31/20 07:58 Large Platelets Not Reportable 03/31/20 07:58 Giant Platelets Not Reportable 03/31/20 07:58 Platelet Satelliting Not Reportable 03/31/20 07:58 Plt Morphology Comment Not Reportable 03/31/20 07:58 RBC Morphology Normal 03/31/20 07:58 Dimorphic RBCs Not Reportable 03/31/20 07:58 Polychromasia Not Reportable 03/31/20 07:58 Hypochromasia Not Reportable 03/31/20 07:58 Poikilocytosis Not Reportable 03/31/20 07:58 Anisocytosis Not Reportable 03/31/20 07:58 Microcytosis Not Reportable 03/31/20 07:58 Macrocytosis Not Reportable 03/31/20 07:58 Spherocytes Not Reportable 03/31/20 07:58 Pappenheimer Bodies Not Reportable 03/31/20 07:58 Sickle Cells Not Reportable 03/31/20 07:58 Target Cells Not Reportable 03/31/20 07:58 Tear Drop Cells Not Reportable 03/31/20 07:58 Ovalocytes Not Reportable 03/31/20 07:58 Helmet Cells Not Reportable 03/31/20 07:58 [place] Bodies Not Reportable 03/31/20 07:58 Nimitz Rings Not Reportable 03/31/20 07:58 Barney Cells Not Reportable 03/31/20 07:58 Bite Cells Not Reportable 03/31/20 07:58 Crenated Cell Not Reportable 03/31/20 07:58 Elliptocytes Not Reportable 03/31/20 07:58 Acanthocytes (Spur) Not Reportable 03/31/20 07:58 Rouleaux Not Reportable 03/31/20 07:58 Hemoglobin C Crystals Not Reportable 03/31/20 07:58 Schistocytes Not Reportable 03/31/20 07:58 Malaria parasites Not Reportable 03/31/20 07:58 Iron Bodies Not Reportable 03/31/20 07:58 Hem Pathologist Commnt No 03/31/20 07:58 PT 12.5 Sec. (12.2-14.9) 03/30/20 05:16 INR 0.95 (0.87-1.13) 03/30/20 05:16 APTT 26.7 Sec. (24.2-36.6) 03/28/20 19:24 VBG pH 7.283 (7.320-7.420) L 03/29/20 11:30 Sodium 145 mmol/L (137-145) 04/01/20 04:50 Potassium 3.4 mmol/L (3.6-5.0) L 04/01/20 04:50 Chloride 103.7 mmol/L (98-107) 04/01/20 04:50 Carbon Dioxide 33 mmol/L (22-30) H 04/01/20 04:50 Anion Gap 12 mmol/L 04/01/20 04:50 BUN 24 mg/dL (9-20) H 04/01/20 04:50 Creatinine 1.3 mg/dL (0.8-1.3) 04/01/20 04:50 Estimated GFR > 60 ml/min 04/01/20 04:50 BUN/Creatinine Ratio 18 % 04/01/20 04:50 Glucose 102 mg/dL (75-100) H 04/01/20 04:50 POC Glucose 118 mg/dL (70-105) H 04/01/20 07:34 Hemoglobin A1c 10.4 % (4-6) H 03/29/20 23:24 Calcium 8.9 mg/dL (8.4-10.2) 04/01/20 04:50 Phosphorus 3.80 mg/dL (2.5-4.5) 03/31/20 07:58 Magnesium 2.40 mg/dL (1.7-2.3) H 03/31/20 07:58 Total Bilirubin 0.50 mg/dL (0.1-1.2) 03/31/20 07:58 AST 14 units/L (5-40) 03/31/20 07:58 ALT 13 units/L (7-56) 03/31/20 07:58 Alkaline Phosphatase 59 units/L (35-129) 03/31/20 07:58 Total Creatine Kinase 125 units/L (55-170) 03/30/20 09:57 CK-MB (CK-2) 3.1 ng/mL (0.0-4.0) 03/30/20 09:57 CK-MB (CK-2) Rel Index 2.4 (0-4) 03/30/20 09:57 Troponin T 0.024 ng/mL (0.00-0.029) 03/30/20 09:57 Total Protein 6.0 g/dL (6.3-8.2) L 03/31/20 07:58 Albumin 3.8 g/dL (3.9-5) L 03/31/20 07:58 Albumin/Globulin Ratio 1.7 % 03/31/20 07:58 Triglycerides 287 mg/dL (2-149) H 03/30/20 05:16 Cholesterol 257 mg/dL (50-199) H 03/30/20 05:16 LDL Cholesterol Direct 157 mg/dL (50-130) H 03/30/20 05:16 HDL Cholesterol 40 mg/dL (40-59) 03/30/20 05:16 Cholesterol/HDL Ratio 6.42 % 03/30/20 05:16 Urine Color Straw (Yellow) 03/29/20 18:20 Urine Turbidity Clear (Clear) 03/29/20 18:20 Urine pH 5.0 (5.0-7.0) 03/29/20 18:20 Ur Specific [place] 1.021 (1.003-1.030) 03/29/20 18:20 Urine Protein 30 mg/dl mg/dL (Negative) 03/29/20 18:20 Urine Glucose (UA) >=500 mg/dL (Negative) 03/29/20 18:20 Urine Ketones 20 mg/dL (Negative) 03/29/20 18:20 Urine Blood Sm (Negative) 03/29/20 18:20 Urine Nitrite Neg (Negative) 03/29/20 18:20 Urine Bilirubin Neg (Negative) 03/29/20 18:20 Urine Urobilinogen < 2.0 mg/dL (<2.0) 03/29/20 18:20 Ur Leukocyte Esterase Neg (Negative) 03/29/20 18:20 Urine WBC (Auto) < 1.0 /HPF (0.0-6.0) 03/29/20 18:20 Urine RBC (Auto) 3.0 /HPF (0.0-6.0) 03/29/20 18:20 U Epithel Cells (Auto) < 1.0 /HPF (0-13.0) 03/29/20 18:20 Urine Opiates Screen Negative 03/29/20 18:20 Urine Methadone Screen Negative 03/29/20 18:20 Ur Barbiturates Screen Negative 03/29/20 18:20 Ur Phencyclidine Scrn Negative 03/29/20 18:20 Ur Amphetamines Screen Negative 03/29/20 18:20 U Benzodiazepines Scrn Negative 03/29/20 18:20 Urine Cocaine Screen Positive 03/29/20 18:20 U Marijuana (THC) Screen Negative 03/29/20 18:20 Drugs of Abuse Note Disclamer 03/29/20 18:20 Microbiology: Microbiology 03/30/20 20:24 Peripheral/Venous Blood Culture - Preliminary NO GROWTH AFTER 24 HOURS 03/30/20 20:24 Peripheral/Venous Blood Culture - Preliminary NO GROWTH AFTER 24 HOURS - Diagnostic Impressions Diagnostic Impressions: Echocardiogram 03/29/20 23:12 Transthoracic Echocardiogram Indication: Chest Pain BP: 177/93 Conclusions *Global left ventricular systolic function is normal. *The estimated ejection fraction is 55-60%. *Mild to moderate concentric left ventricular hypertrophy is observed. *The left atrial chamber size is normal. *There is trace of mitral regurgitation. *There is trace tricuspid regurgitation. Findings Procedure Info: The study quality is good. Left Ventricle: The left ventricular chamber size is normal. Mild to moderate concentric left ventricular hypertrophy is observed. Global left ventricular systolic function is normal. The estimated ejection fraction is 55-60%. Abnormal left ventricular diastolic filling is observed, consistent with impaired relaxation. Left Atrium: The left atrial chamber size is normal. Right Ventricle: The right ventricular chamber size and systolic function are within normal limits. Right Atrium: The right atrial cavity size is normal. Aortic Valve: The aortic valve is trileaflet. There is no evidence of aortic regurgitation. There is no evidence of aortic stenosis. Mitral Valve: The mitral valve leaflets are mildly thickened. There is trace of mitral regurgitation. There is no evidence of mitral stenosis. Tricuspid Valve: The tricuspid valve leaflets are normal. There is trace tricuspid regurgitation. No pulmonary hypertension is noted. Pulmonic Valve: The pulmonic valve appears normal. There is trace pulmonic regurgitation. Pericardium: There is no pericardial effusion. Aorta: There is no dilatation of the ascending aorta. There is no dilatation of the aortic arch. There is no dilatation of the aortic root. Venous: The inferior vena cava appears normal in size. There is a greater than 50% respiratory change in the inferior vena cava dimension. Measurements Chambers 2D Name Value Normal Range IVSd (2D) 1.11 cm (0.6 - 1.1) LVPWd (2D) 1.08 cm (0.6 - 1.1) LVIDd (2D) 4.77 cm (3.7 - 5.6) LVIDs (2D) 3.19 cm (2 - 3.8) LV FS (2D) 33.13 % - EF Teichholz (2D) 61.65 % - Ao root diameter (2D) 2.84 cm (2 - 3.7) Volumes/Mass Name Value Normal Range LA ESV SP 4CH (A/L) 42.4 ml - LA ESV SP 2CH (A/L) 53.48 ml - LA ESV BP (A/L) 51.25 ml - LA ESV BP (A/L) index 31.83 ml/m2 - LA ESV SP 4CH (MOD) 40.44 ml - LA ESV SP 2CH (MOD) 48.98 ml - LA ESV BP (MOD) 47.81 ml - LA ESV BP (MOD) index 29.69 ml/m2 - LV EDV SP 4CH (MOD) 96.44 ml - LV ESV SP 4CH (MOD) 35.52 ml - EF SP 4CH (MOD) 63.17 % - LV EDV SP 2CH (MOD) 88.59 ml - LV ESV SP 2CH (MOD) 33.97 ml - EF SP 2CH (MOD) 61.65 % - LV EDV BP 91.65 ml - LV ESV BP 34.72 ml - BP EF (MOD) 62.12 % - Diastolic/Systolic Function Name Value Normal Range MV E-wave Vmax 0.77 m/sec - MV deceleration time 112.27 msec - MV A-wave Vmax 0.98 m/sec - MV E:A ratio 0.79 ratio - Aortic Valve Name Value Normal Range AV Vmax 1.36 m/sec - AV VTI 28.23 cm - AV peak gradient 7.36 mmHg - AV mean gradient 4.02 mmHg - LVOT diameter 2.01 cm - LVOT Vmax 0.88 m/sec - LVOT VTI 18.85 cm - LVOT peak gradient 3.07 mmHg - LVOT mean gradient 1.37 mmHg - SV LVOT 59.86 ml - JACKI (continuity Vmax) 2.05 cm2 - JACKI (continuity VTI) 2.12 cm2 - Ascending Ao 2.91 cm - Tricuspid Valve Name Value Normal Range TV E-wave Vmax 0.49 m/sec - TR Vmax 1.27 m/sec - TR peak gradient 6.43 mmHg - RAP 3 mmHg - Pulmonic Valve/Qp:Qs Name Value Normal Range PV Vmax 1.05 m/sec - PV peak gradient 4.37 mmHg - [place] end-diastolic Vmax 1.3 m/sec - RVOT Vmax 0.79 m/sec - RVOT VTI 16.42 cm - RVOT peak gradient 2.49 mmHg - PV acceleration time 114.18 msec - Freeman/IV: Voiding Method Urinal IV Catheter Type [Left Peripheral IV Antecubital] IV Catheter Type [Right Peripheral IV Forearm] IV Catheter Type [Left Forearm INT / Saline Lock ] Active Medications - Current Medications Current Medications: Generic Name Dose Route Start Last Admin Trade Name Freq PRN Reason Stop Dose Admin Acetaminophen 650 mg 03/29/20 23:10 Acetaminophen 325 Mg Tab PO Q6H PRN Pain, Mild (1-3) Amlodipine Besylate 10 mg 04/01/20 10:00 Amlodipine 10 Mg Tab PO QDAY GARETH Aspirin 325 mg 03/30/20 10:00 03/31/20 09:06 Aspirin Ec 325 Mg Tab PO 325 mg QDAY GARETH Administration Atorvastatin Calcium 40 mg 03/30/20 22:00 12/20/20 21:25 Atorvastatin 40 Mg Tab PO 40 mg QHS GARETH Administration Dextrose 50 ml 03/29/20 21:14 03/31/20 22:35 Dextrose 50% In Water (25gm) 50 Ml Syringe IV 15 ml Q30MIN PRN Administration Hypoglycemia Protocol Enoxaparin Sodium 40 mg 03/30/20 22:00 03/31/20 21:25 Enoxaparin 40 Mg/0.4 Ml Inj SUB-Q 40 mg QDAY@2200 GARETH Administration Protocol Sodium Chloride 1,000 mls @ 75 mls/hr 03/31/20 14:00 04/01/20 01:18 Nacl 0.45% 1000 Ml IV 75 mls/hr DIRECT GARETH Administration Insulin Human Isoph/Insulin Regular 22 unit 03/31/20 17:00 03/31/20 17:30 Insulin Nph/Regular 70/30 Inj SUB-Q 22 unit BIDDIAB GARETH Administration Insulin Human Lispro 0 unit 03/30/20 11:30 03/31/20 21:25 Insulin Lispro 100 Unit/Ml Vial 3 Ml SUB-Q Not Given ACHS GARETH Protocol Labetalol HCl 10 mg 03/30/20 07:33 03/31/20 21:25 Labetalol 20 Mg/4 Ml Inj IV 10 mg Q4H PRN Administration Hypertension Morphine Sulfate 2 mg 03/29/20 23:10 04/01/20 03:52 Morphine 4 Mg/1 Ml Inj IV 2 mg Q5MIN PRN Administration Chest Pain Nitroglycerin 0.4 mg 03/29/20 23:10 Nitroglycerin 0.4 Mg Tab Subl SL Q5M PRN Chest Pain Sodium Chloride 10 ml 03/30/20 10:00 03/31/20 21:26 Sodium Chloride 0.9% 10 Ml Flush Syringe IV 10 ml BID GARETH Administration Sodium Chloride 10 ml 03/29/20 23:02 Sodium Chloride 0.9% 10 Ml Flush Syringe IV PRN PRN LINE FLUSH Nutrition/Malnutrition Assess - Dietary Evaluation Nutrition/Malnutrition Findings: Nutrition Notes Start: 03/30/20 11:15 Freq: Status: Active Protocol: Document 03/30/20 11:15 LP (Rec: 03/30/20 11:17 LP [id number]) Nutrition Notes Need for Assessment generated from: MD Order Initial or Follow up Brief Note Current Diagnosis Acute Kidney Injury,Diabetes Other Pertinent Diagnosis chest pain, cocaine abuse Current Diet Consistent CHO Labs/Tests Na 151 BUN 43 Cr 1.7 BG 170 A1c 10.4 Pertinent Medications D5NS at 150ml/hr Height 5 ft 3 in Weight 58.967 kg [place] Body Weight (kg) 56.36 BMI 23.0 Weight Status Appropriate Subjective/Other Information Consult for diet education. Pt in ED. Nutrition Intervention Follow-Up By: 04/01/20 Additional Comments Follow for diet education
--- NOTE | 2020-04-01 11:02 | Progress Note ---
Assessment and Plan - Patient Problems (1) Leukocytosis Current Visit: Yes Status: Acute Plan to address problem: A COVID-19 test will be ordered, recommend optimal sepsis evaluation prior to noninvasive cardiac evaluation for atypical chest pain. (2) Chest pain Current Visit: Yes Status: Acute Plan to address problem: Elective stress test for atypical chest pain, after further assessment of leukocytosis and Covid 19 status. Subjective Date of service: 04/01/20 Interval history: The patient's leukocytosis improving, currently 9.8, temperature was down to 98.6, and prerenal azotemia is resolving on IV hydration. The etiology of the presenting leukocytosis is still undetermined, I have asked the nurse to order a COVID-19 test. Objective Vital Signs Temp Pulse Resp BP BP Pulse Ox 04/01/20 07:30 98.6 F 71 18 148/82 04/01/20 03:00 80 04/01/20 00:35 98.6 F 79 17 155/80 95 03/31/20 20:24 96.4 F L 84 17 178/91 96 03/31/20 17:11 98.6 F 81 18 159/86 93 03/31/20 12:58 89 166/101 03/31/20 12:55 98.1 F 89 18 166/101 93 - Physical Examination General: No Apparent Distress HEENT: Positive: PERRL Neck: Positive: neck supple Cardiac: Positive: Reg Rate and Rhythm Lungs: Positive: Decreased Breath Sounds Neuro: Positive: Grossly Intact Abdomen: Positive: Soft Skin: Positive: Clear Extremities: Absent: edema - Labs and Meds CBC 04/01/20 Range/Units 04:50 WBC 9.4 (4.5-11.0) K/mm3 RBC 4.44 (3.65-5.03) M/mm3 Hgb 13.7 (11.8-15.2) gm/dl Hct 40.3 (35.5-45.6) % Plt Count 202 (140-440) K/mm3 Comprehensive Metabolic Panel 04/01/20 Range/Units 04:50 Sodium 145 (137-145) mmol/L Potassium 3.4 L (3.6-5.0) mmol/L Chloride 103.7 (98-107) mmol/L Carbon Dioxide 33 H (22-30) mmol/L BUN 24 H (9-20) mg/dL Creatinine 1.3 (0.8-1.3) mg/dL Glucose 102 H (75-100) mg/dL Calcium 8.9 (8.4-10.2) mg/dL
[2020-04-01] MEDS: INSULIN NPH/REGULAR 70/30 INJ SUB-Q SCH ×2 (11:03→21:10)
[2020-04-01] MEDS: INSULIN LISPRO 100 UNIT/ML VIAL 3 mL SUB-Q SCH ×3 (11:04→21:11)
[2020-04-01] MEDS: amLODIPine 10 MG TAB PO SCH (11:04)
[2020-04-01] MEDS: ASPIRIN EC 325 MG TAB PO SCH (11:04)
[2020-04-01 13:54] LABS: C-Reactive Protein 0.1 mg/dL (0.00-1.30)
[2020-04-01] MEDS: ENOXAPARIN 40 MG/0.4 ML INJ SUB-Q SCH (21:12)
[2020-04-02] MEDS: INSULIN NPH/REGULAR 70/30 INJ SUB-Q SCH ×2 (07:51→09:39)
[2020-04-02] MEDS: ASPIRIN EC 325 MG TAB PO SCH (09:38)
[2020-04-02] MEDS: amLODIPine 10 MG TAB PO SCH (09:39)
[2020-04-02] MEDS: INSULIN LISPRO 100 UNIT/ML VIAL 3 mL SUB-Q SCH (09:39)
[2020-04-02 09:42] VITALS: BP 147/86
--- NOTE | 2020-04-02 09:59 | Progress Note ---
Assessment and Plan Assessment and plan: --Hyperglycemia/hyperosmolar state off insulin drip blood sugars uncontrolled Insulin dose adjusted Patient's anion gap is normal Diabetic education, nutrition education Possible home health nurse for disease monitoring at the time of discharge --Dehydration secondary to hyperglycemia/hyperosmolar state Aggressive IV hydration started on 1/2 NS monitor electrolytes --Chest pain; with multiple risk factors Diabetes mellitus, dyslipidemia, history of tobacco use, age cardiology note reviewed cont. per. cardiology recommendations aspirin, nitrates and statins, Pain medications --Acute kidney injury; improving 2/2 volume depletion Gentle hydration, monitor renal function avoid nephrotoxins Nephrology consult if no improvement --Hypernatremia; recommend free water start 1/2 NS Closely monitor electrolytes --Dyslipidemia; cont. Lipitor 40 mg nightly low-cholesterol diet --Mild leukocytosis; likely reactive trending down Probably secondary to dehydration, check for infectious process patient has no fever, chest x-ray no acute abnormality Urine analysis no evidence of UTI, CT abdomen no evidence of infectious process blood and urine cultures - no growth so far will monitor --Cocaine use; Patient's chest pain probably related to cocaine use Strongly counseled the patient to quit recreational drug use --Ongoing tobacco use; Smoking cessation counseling done Advised nicotine patch as needed --DVT prophylaxis; Placed on Lovenox We will closely monitor the patient and adjust the management as needed Plan of care discussed with the patient and nurse 04/01/2020. If cardiology with no plans of cardiac evaluation, we will likely discharge. 04/02/2020. Patient with no evidence of sepsis--leukocytosis resolved and patient afebrile. Cardiology ordered Covid testing. Inflammatory markers are normal. Await cardiology recommendations and anticipate discharge. History Interval history: No new issues overnight. Hospitalist Physical - Constitutional Vitals: Temp Pulse Resp BP Pulse Ox 98.1 F 78 18 147/86 99 04/02/20 09:04 04/02/20 09:04 04/02/20 09:04 04/02/20 09:04 04/02/20 09:04 General appearance: Present: no acute distress - EENT Eyes: Present: PERRL, EOM intact ENT: hearing intact, clear oral mucosa, dentition normal - Neck Neck: Present: supple, normal ROM - Respiratory Respiratory effort: normal Respiratory: bilateral: CTA - Cardiovascular Rhythm: regular Heart Sounds: Present: S1 & S2. Absent: gallop, rub - Extremities Extremities: no ischemia, No edema, Full ROM - Abdominal General gastrointestinal: soft, non-tender, non-distended, normal bowel sounds - Integumentary Integumentary: Present: clear, warm, dry - Neurologic Neurologic: CNII-XII intact, moves all extremities HEART Score - HEART Score EKG: Normal Age: 45-65 Risk factors: 1-2 risk factors Troponin: Troponin T 0.024 ng/mL (0.00-0.029) 03/30/20 09:57 Troponin: < normal limit - Critical Actions Critical Actions: 0-3 pts:0.9-1.7%risk of adverse cardiac event.Candidate for discharge Results - Labs CBC & Chem 7: 04/01/20 04:50 04/01/20 04:50 Labs: Laboratory Last Values WBC 9.4 K/mm3 (4.5-11.0) 04/01/20 04:50 RBC 4.44 M/mm3 (3.65-5.03) 04/01/20 04:50 Hgb 13.7 gm/dl (11.8-15.2) 04/01/20 04:50 Hct 40.3 % (35.5-45.6) 04/01/20 04:50 MCV 91 fl (84-94) 04/01/20 04:50 MCH 31 pg (28-32) 04/01/20 04:50 MCHC 34 % (32-34) 04/01/20 04:50 RDW 12.5 % (13.2-15.2) L 04/01/20 04:50 Plt Count 202 K/mm3 (140-440) 04/01/20 04:50 Lymph % (Auto) 7.4 % (13.4-35.0) L 03/30/20 05:16 Desha % (Auto) 4.8 % (0.0-7.3) 03/30/20 05:16 Eos % (Auto) 0.0 % (0.0-4.3) 03/30/20 05:16 Baso % (Auto) 0.2 % (0.0-1.8) 03/30/20 05:16 Lymph # (Auto) 1.3 K/mm3 (1.2-5.4) 03/30/20 05:16 Desha # (Auto) 0.9 K/mm3 (0.0-0.8) H 03/30/20 05:16 Eos # (Auto) 0.0 K/mm3 (0.0-0.4) 03/30/20 05:16 Baso # (Auto) 0.0 K/mm3 (0.0-0.1) 03/30/20 05:16 Add Manual Diff Complete 03/31/20 07:58 Total Counted 100 03/31/20 07:58 Seg Neutrophils % [employer] Material [employer] 03/31/20 07:58 Seg Neuts % (Manual) 94.0 % (40.0-70.0) H 03/31/20 07:58 Lymphocytes % (Manual) 3.0 % (13.4-35.0) L 03/31/20 07:58 Reactive Lymphs % (Man) 2.0 % 03/31/20 07:58 Monocytes % (Manual) 1.0 % (0.0-7.3) 03/31/20 07:58 Nucleated RBC % Not Reportable 03/31/20 07:58 Seg Neutrophils # 16.0 K/mm3 (1.8-7.7) H 03/30/20 05:16 Seg Neutrophils # Man 12.8 K/mm3 (1.8-7.7) H 03/31/20 07:58 Band Neutrophils # 0.0 K/mm3 03/31/20 07:58 Lymphocytes # (Manual) 0.4 K/mm3 (1.2-5.4) L 03/31/20 07:58 Abs React Lymphs (Man) 0.3 K/mm3 03/31/20 07:58 Monocytes # (Manual) 0.1 K/mm3 (0.0-0.8) 03/31/20 07:58 Eosinophils # (Manual) 0.0 K/mm3 (0.0-0.4) 03/31/20 07:58 Basophils # (Manual) 0.0 K/mm3 (0.0-0.1) 03/31/20 07:58 Metamyelocytes # 0.0 K/mm3 03/31/20 07:58 Myelocytes # 0.0 K/mm3 03/31/20 07:58 Promyelocytes # 0.0 K/mm3 03/31/20 07:58 Blast Cells # 0.0 K/mm3 03/31/20 07:58 WBC Morphology Not Reportable 03/31/20 07:58 WBC Morphology TNR 03/31/20 07:58 Hypersegmented Neuts Not Reportable 03/31/20 07:58 Hyposegmented Neuts Not Reportable 03/31/20 07:58 Hypogranular Neuts Not Reportable 03/31/20 07:58 Smudge Cells Not Reportable 03/31/20 07:58 Toxic Granulation Not Reportable 03/31/20 07:58 Toxic Vacuolation Not Reportable 03/31/20 07:58 Dohle Bodies Not Reportable 03/31/20 07:58 Pelger-Huet Anomaly Not Reportable 03/31/20 07:58 Perez Rods Not Reportable 03/31/20 07:58 Platelet Estimate Consistent w auto 03/31/20 07:58 Clumped Platelets Not Reportable 03/31/20 07:58 Plt Clumps, EDTA Not Reportable 03/31/20 07:58 Large Platelets Not Reportable 03/31/20 07:58 Giant Platelets Not Reportable 03/31/20 07:58 Platelet Satelliting Not Reportable 03/31/20 07:58 Plt Morphology Comment Not Reportable 03/31/20 07:58 RBC Morphology Normal 03/31/20 07:58 Dimorphic RBCs Not Reportable 03/31/20 07:58 Polychromasia Not Reportable 03/31/20 07:58 Hypochromasia Not Reportable 03/31/20 07:58 Poikilocytosis Not Reportable 03/31/20 07:58 Anisocytosis Not Reportable 03/31/20 07:58 Microcytosis Not Reportable 03/31/20 07:58 Macrocytosis Not Reportable 03/31/20 07:58 Spherocytes Not Reportable 03/31/20 07:58 Pappenheimer Bodies Not Reportable 03/31/20 07:58 Sickle Cells Not Reportable 03/31/20 07:58 Target Cells Not Reportable 03/31/20 07:58 Tear Drop Cells Not Reportable 03/31/20 07:58 Ovalocytes Not Reportable 03/31/20 07:58 Helmet Cells Not Reportable 03/31/20 07:58 Squires-Trail Bodies Not Reportable 03/31/20 07:58 [place] Rings Not Reportable 03/31/20 07:58 Rika Cells Not Reportable 03/31/20 07:58 Bite Cells Not Reportable 03/31/20 07:58 Crenated Cell Not Reportable 03/31/20 07:58 Elliptocytes Not Reportable 03/31/20 07:58 Acanthocytes (Spur) Not Reportable 03/31/20 07:58 Rouleaux Not Reportable 03/31/20 07:58 Hemoglobin C Crystals Not Reportable 03/31/20 07:58 Schistocytes Not Reportable 03/31/20 07:58 Malaria parasites Not Reportable 03/31/20 07:58 Iron Bodies Not Reportable 03/31/20 07:58 Hem Pathologist Commnt No 03/31/20 07:58 PT 12.5 Sec. (12.2-14.9) 03/30/20 05:16 INR 0.95 (0.87-1.13) 03/30/20 05:16 APTT 26.7 Sec. (24.2-36.6) 03/28/20 19:24 D-Dimer 145.13 ng/mlDDU (0-234) 04/01/20 12:44 VBG pH 7.283 (7.320-7.420) L 03/29/20 11:30 Sodium 145 mmol/L (137-145) 04/01/20 04:50 Potassium 3.4 mmol/L (3.6-5.0) L 04/01/20 04:50 Chloride 103.7 mmol/L (98-107) 04/01/20 04:50 Carbon Dioxide 33 mmol/L (22-30) H 04/01/20 04:50 Anion Gap 12 mmol/L 04/01/20 04:50 BUN 24 mg/dL (9-20) H 04/01/20 04:50 Creatinine 1.3 mg/dL (0.8-1.3) 04/01/20 04:50 Estimated GFR > 60 ml/min 04/01/20 04:50 BUN/Creatinine Ratio 18 % 04/01/20 04:50 Glucose 102 mg/dL (75-100) H 04/01/20 04:50 POC Glucose 307 mg/dL (70-105) H 04/02/20 08:07 Hemoglobin A1c 10.4 % (4-6) H 03/29/20 23:24 Calcium 8.9 mg/dL (8.4-10.2) 04/01/20 04:50 Phosphorus 3.80 mg/dL (2.5-4.5) 03/31/20 07:58 Magnesium 2.40 mg/dL (1.7-2.3) H 03/31/20 07:58 Ferritin 513.3 ng/mL (30.0-300.0) H 04/01/20 12:44 Total Bilirubin 0.50 mg/dL (0.1-1.2) 03/31/20 07:58 AST 14 units/L (5-40) 03/31/20 07:58 ALT 13 units/L (7-56) 03/31/20 07:58 Alkaline Phosphatase 59 units/L (35-129) 03/31/20 07:58 Lactate Dehydrogenase 173 units/L (91-180) 04/01/20 12:44 Total Creatine Kinase 125 units/L (55-170) 03/30/20 09:57 CK-MB (CK-2) 3.1 ng/mL (0.0-4.0) 03/30/20 09:57 CK-MB (CK-2) Rel Index 2.4 (0-4) 03/30/20 09:57 Troponin T 0.024 ng/mL (0.00-0.029) 03/30/20 09:57 C-Reactive Protein 0.10 mg/dL (0.00-1.30) 04/01/20 12:44 Total Protein 6.0 g/dL (6.3-8.2) L 03/31/20 07:58 Albumin 3.8 g/dL (3.9-5) L 03/31/20 07:58 Albumin/Globulin Ratio 1.7 % 03/31/20 07:58 Triglycerides 287 mg/dL (2-149) H 03/30/20 05:16 Cholesterol 257 mg/dL (50-199) H 03/30/20 05:16 LDL Cholesterol Direct 157 mg/dL (50-130) H 03/30/20 05:16 HDL Cholesterol 40 mg/dL (40-59) 03/30/20 05:16 Cholesterol/HDL Ratio 6.42 % 03/30/20 05:16 Procalcitonin < 0.05 ng/mL (<0.15) 04/01/20 12:44 Urine Color Straw (Yellow) 03/29/20 18:20 Urine Turbidity Clear (Clear) 03/29/20 18:20 Urine pH 5.0 (5.0-7.0) 03/29/20 18:20 Ur Specific [place] 1.021 (1.003-1.030) 03/29/20 18:20 Urine Protein 30 mg/dl mg/dL (Negative) 03/29/20 18:20 Urine Glucose (UA) >=500 mg/dL (Negative) 03/29/20 18:20 Urine Ketones 20 mg/dL (Negative) 03/29/20 18:20 Urine Blood Sm (Negative) 03/29/20 18:20 Urine Nitrite Neg (Negative) 03/29/20 18:20 Urine Bilirubin Neg (Negative) 03/29/20 18:20 Urine Urobilinogen < 2.0 mg/dL (<2.0) 03/29/20 18:20 Ur Leukocyte Esterase Neg (Negative) 03/29/20 18:20 Urine WBC (Auto) < 1.0 /HPF (0.0-6.0) 03/29/20 18:20 Urine RBC (Auto) 3.0 /HPF (0.0-6.0) 03/29/20 18:20 U Epithel Cells (Auto) < 1.0 /HPF (0-13.0) 03/29/20 18:20 Urine Opiates Screen Negative 03/29/20 18:20 Urine Methadone Screen Negative 03/29/20 18:20 Ur Barbiturates Screen Negative 03/29/20 18:20 Ur Phencyclidine Scrn Negative 20 18:20 Ur Amphetamines Screen Negative 03/29/20 18:20 U Benzodiazepines Scrn Negative 03/29/20 18:20 Urine Cocaine Screen Positive 03/29/20 18:20 U Marijuana (THC) Screen Negative 03/29/20 18:20 Drugs of Abuse Note Disclamer 03/29/20 18:20 Microbiology: Microbiology 03/30/20 20:24 Peripheral/Venous Blood Culture - Preliminary NO GROWTH AFTER 48 HOURS 03/30/20 20:24 Peripheral/Venous Blood Culture - Preliminary NO GROWTH AFTER 48 HOURS 03/30/20 19:50 Urine,Clean Catch Urine Culture - Preliminary - Diagnostic Impressions Diagnostic Impressions: Echocardiogram 03/29/20 23:12 Transthoracic Echocardiogram Indication: Chest Pain BP: 177/93 Conclusions *Global left ventricular systolic function is normal. *The estimated ejection fraction is 55-60%. *Mild to moderate concentric left ventricular hypertrophy is observed. *The left atrial chamber size is normal. *There is trace of mitral regurgitation. *There is trace tricuspid regurgitation. Findings Procedure Info: The study quality is good. Left Ventricle: The left ventricular chamber size is normal. Mild to moderate concentric left ventricular hypertrophy is observed. Global left ventricular systolic function is normal. The estimated ejection fraction is 55-60%. Abnormal left ventricular diastolic filling is observed, consistent with impaired relaxation. Left Atrium: The left atrial chamber size is normal. Right Ventricle: The right ventricular chamber size and systolic function are within normal limits. Right Atrium: The right atrial cavity size is normal. Aortic Valve: The aortic valve is trileaflet. There is no evidence of aortic regurgitation. There is no evidence of aortic stenosis. Mitral Valve: The mitral valve leaflets are mildly thickened. There is trace of mitral regurgitation. There is no evidence of mitral stenosis. Tricuspid Valve: The tricuspid valve leaflets are normal. There is trace tricuspid regurgitation. No pulmonary hypertension is noted. Pulmonic Valve: The pulmonic valve appears normal. There is trace pulmonic regurgitation. Pericardium: There is no pericardial effusion. Aorta: There is no dilatation of the ascending aorta. There is no dilatation of the aortic arch. There is no dilatation of the aortic root. Venous: The inferior vena cava appears normal in size. There is a greater than 50% respiratory change in the inferior vena cava dimension. Measurements Chambers 2D Name Value Normal Range IVSd (2D) 1.11 cm (0.6 - 1.1) LVPWd (2D) 1.08 cm (0.6 - 1.1) LVIDd (2D) 4.77 cm (3.7 - 5.6) LVIDs (2D) 3.19 cm (2 - 3.8) LV FS (2D) 33.13 % - EF Teichholz (2D) 61.65 % - Ao root diameter (2D) 2.84 cm (2 - 3.7) Volumes/Mass Name Value Normal Range LA ESV SP 4CH (A/L) 42.4 ml - LA ESV SP 2CH (A/L) 53.48 ml - LA ESV BP (A/L) 51.25 ml - LA ESV BP (A/L) index 31.83 ml/m2 - LA ESV SP 4CH (MOD) 40.44 ml - LA ESV SP 2CH (MOD) 48.98 ml - LA ESV BP (MOD) 47.81 ml - LA ESV BP (MOD) index 29.69 ml/m2 - LV EDV SP 4CH (MOD) 96.44 ml - LV ESV SP 4CH (MOD) 35.52 ml - EF SP 4CH (MOD) 63.17 % - LV EDV SP 2CH (MOD) 88.59 ml - LV ESV SP 2CH (MOD) 33.97 ml - EF SP 2CH (MOD) 61.65 % - LV EDV BP 91.65 ml - LV ESV BP 34.72 ml - BP EF (MOD) 62.12 % - Diastolic/Systolic Function Name Value Normal Range MV E-wave Vmax 0.77 m/sec - MV deceleration time 112.27 msec - MV A-wave Vmax 0.98 m/sec - MV E:A ratio 0.79 ratio - Aortic Valve Name Value Normal Range AV Vmax 1.36 m/sec - AV VTI 28.23 cm - AV peak gradient 7.36 mmHg - AV mean gradient 4.02 mmHg - LVOT diameter 2.01 cm - LVOT Vmax 0.88 m/sec - LVOT VTI 18.85 cm - LVOT peak gradient 3.07 mmHg - LVOT mean gradient 1.37 mmHg - SV LVOT 59.86 ml - JACKI (continuity Vmax) 2.05 cm2 - JACKI (continuity VTI) 2.12 cm2 - Ascending Ao 2.91 cm - Tricuspid Valve Name Value Normal Range TV E-wave Vmax 0.49 m/sec - TR Vmax 1.27 m/sec - TR peak gradient 6.43 mmHg - RAP 3 mmHg - Pulmonic Valve/Qp:Qs Name Value Normal Range PV Vmax 1.05 m/sec - PV peak gradient 4.37 mmHg - NJ end-diastolic Vmax 1.3 m/sec - RVOT Vmax 0.79 m/sec - RVOT VTI 16.42 cm - RVOT peak gradient 2.49 mmHg - PV acceleration time 114.18 msec - Freeman/IV: Voiding Method Urinal IV Catheter Type [Left Peripheral IV Antecubital] IV Catheter Type [Right Peripheral IV Forearm] IV Catheter Type [Left Forearm INT / Saline Lock ] Active Medications - Current Medications Current Medications: Generic Name Dose Route Start Last Admin Trade Name Freq PRN Reason Stop Dose Admin Acetaminophen 650 mg 03/29/20 23:10 Acetaminophen 325 Mg Tab PO Q6H PRN Pain, Mild (1-3) Amlodipine Besylate 10 mg 04/01/20 10:00 04/02/20 09:39 Amlodipine 10 Mg Tab PO 10 mg QDAY GARETH Administration Aspirin 325 mg 03/30/20 10:00 04/02/20 09:38 Aspirin Ec 325 Mg Tab PO 325 mg QDAY GARETH Administration Atorvastatin Calcium 40 mg 03/30/20 22:00 04/01/20 21:13 Atorvastatin 40 Mg Tab PO 40 mg QHS GARETH Administration Dextrose 50 ml 03/29/20 21:14 03/31/20 22:35 Dextrose 50% In Water (25gm) 50 Ml Syringe IV 15 ml Q30MIN PRN Administration Hypoglycemia Protocol Enoxaparin Sodium 40 mg 03/30/20 22:00 04/01/20 21:12 Enoxaparin 40 Mg/0.4 Ml Inj SUB-Q 40 mg QDAY@2200 GARETH Administration Protocol Sodium Chloride 1,000 mls @ 75 mls/hr 03/31/20 14:00 04/01/20 01:18 Nacl 0.45% 1000 Ml IV 75 mls/hr DIRECT GARETH Administration Insulin Human Isoph/Insulin Regular 22 unit 03/31/20 17:00 04/02/20 09:39 Insulin Nph/Regular 70/30 Inj SUB-Q 22 unit BIDDIAB GARETH Administration Insulin Human Lispro 0 unit 03/30/20 11:30 04/02/20 09:39 Insulin Lispro 100 Unit/Ml Vial 3 Ml SUB-Q Not Given ACHS GARETH Protocol Labetalol HCl 10 mg 03/30/20 07:33 03/31/20 21:25 Labetalol 20 Mg/4 Ml Inj IV 10 mg Q4H PRN Administration Hypertension Morphine Sulfate 2 mg 03/29/20 23:10 04/01/20 03:52 Morphine 4 Mg/1 Ml Inj IV 2 mg Q5MIN PRN Administration Chest Pain Nitroglycerin 0.4 mg 03/29/20 23:10 Nitroglycerin 0.4 Mg Tab Subl SL Q5M PRN Chest Pain Sodium Chloride 10 ml 03/30/20 10:00 04/01/20 21:17 Sodium Chloride 0.9% 10 Ml Flush Syringe IV Not Given BID GARETH Sodium Chloride 10 ml 03/29/20 23:02 Sodium Chloride 0.9% 10 Ml Flush Syringe IV PRN PRN LINE FLUSH Nutrition/Malnutrition Assess - Dietary Evaluation Nutrition/Malnutrition Findings: Nutrition Notes Start: 03/30/20 11:15 Freq: Status: Active Protocol: Document 04/01/20 11:28 (Rec: 04/01/20 11:47 [id number]) Nutrition Notes Need for Assessment generated from: MD Order,tub rider,MST, Education Current Diagnosis Acute Kidney Injury,Diabetes Other Pertinent Diagnosis chest pain, cocaine abuse Current Diet Consistent CHO Labs/Tests K 3.4 BUN 24 Pertinent Medications 1/2NS at 75 ml/hr Height 5 ft 3 in Weight 58.967 kg Usual Body Weight 63.36 kg [place] Body Weight (kg) 56.36 BMI 23.0 Intake Prior to Admission Poor Weight change and time frame 7% wt loss, unknown time frame Weight Status Appropriate Subjective/Other Information FU for diet education. MD order for ONS and poor oral intake, RN screen for MST. Pt reports UBW of 140lbs but unsure of last when. 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 Pt reports nausea today. Pt reports tolerating the Glucerna. 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 No Is Patient Ambulatory and/or Out of Bed Yes REE-([place]-ambulatory/OOB) [ 1270.741 [id number]] Additional Notes Pro: 47-59g (0.8-1g/kg) Fluid: 1 ml/kcal Nutrition Intervention Change Diet Order: Continue current Add Supplement/Snack (indicate name/kcal Glucerna TID /protein ) Provides kCal: 660 Provides Protein (gm) 30 Goal #1 Meet at least 75% of protein and energy needs via PO and ONS intakes Anticipated Discharge Needs: Consistent CHO Follow-Up By: 04/03/20 Additional Comments FU for intakes, ONS tolernance
--- NOTE | 2020-04-02 11:07 | Progress Note ---
Assessment and Plan - Patient Problems (1) Chest pain Current Visit: Yes Status: Acute Plan to address problem: Metabolic derangement and leukocytosis improved. COVID-19 test has been ordered, results are pending. We will proceed with a Lexiscan thallium stress test tomorrow morning for chest pain assessment. (2) Leukocytosis Current Visit: Yes Status: Acute Subjective Date of service: 04/02/20 Interval history: Patient is comfortable, looks and feels better. His leukocytosis is resolving, and the uncontrolled diabetes, acidosis and hyperosmolar state improved. Objective Vital Signs Temp Pulse Pulse Resp BP Pulse Ox 04/02/20 09:04 98.1 F 78 18 147/86 99 04/02/20 04:05 97.6 F 70 16 145/87 98 04/02/20 00:20 98.5 F 79 14 116/72 96 04/01/20 23:53 98.5 F 79 14 116/72 96 04/01/20 22:00 75 16 98 04/01/20 20:07 79 04/01/20 19:43 98.4 F 75 16 133/70 98 04/01/20 17:01 98.5 F 71 18 127/81 96 04/01/20 12:49 98.3 F 71 18 164/89 98 - Physical Examination General: No Apparent Distress HEENT: Positive: PERRL Neck: Positive: neck supple Cardiac: Positive: Reg Rate and Rhythm Lungs: Positive: Decreased Breath Sounds Neuro: Positive: Grossly Intact Abdomen: Positive: Soft Skin: Positive: Clear Extremities: Absent: edema - Labs and Meds Cardiac Enzymes 04/01/20 Range/Units 12:44 Lactate Dehydrogenase 173 (91-180) units/L
--- NOTE | 2020-04-04 10:43 | Discharge Summary ---
Providers - Providers Date of Admission: 03/29/20 21:21 Date of discharge: 04/04/20 Attending physician: TALIA TINAJERO 03/29/20 Consult to Cardiac Rehabilitation [CONS] Routine Reason For Exam: Phase I 03/29/20 23:03 Consult to Dietitian/Nutrition [CONS] Routine Physician Instructions: Reason For Exam: Reason for Consult: Diet education 03/29/20 23:10 Consult to Cardiology [CONS] Routine Consulting Provider: CRESENCIO LEON Reason For Exam: chest pain, cocaine abuse 03/30/20 18:48 Consult to Dietitian/Nutrition [CONS] Routine Physician Instructions: Reason For Exam: Reason for Consult: Poor oral intake Primary care physician: [employer] Hospitalization Reason for admission: Hyperglycemia and chest pain Condition: Stable Hospital course: 54-year-old male with past medical history significant for diabetes mellitus type 2 and cocaine abuse who presented through the emergency department with admission diagnosis of hyperglycemia/hyperosmolar and chest pain. Patient reportedly on the day prior to admission had a crack binge and developed chest pain prompting his visit to the emergency room. Serial EKGs in emergency room revealed normal sinus rhythm with no ST-T wave changes. Patient was seen by cardiology in consultation and underwent echocardiogram that revealed normal left ventricular systolic function with ejection fraction 55 to 60% and no significant valvular abnormalities. Patient was noted to have significant leukocytosis in the range of 18,000 and acute kidney injury secondary to vasomotor nephropathy and dehydration. Patient received IV fluid hydration and had improvement of the hyperglycemia/hyperosmolar state and dehydration. Cardiology also saw the patient in consultation. Admission/discharge diagnoses and hospital course: --Hyperglycemia/hyperosmolar state off insulin drip blood sugars uncontrolled Insulin dose adjusted Patient's anion gap is normal Diabetic education, nutrition education Possible home health nurse for disease monitoring at the time of discharge --Dehydration secondary to hyperglycemia/hyperosmolar state Aggressive IV hydration started on 1/2 NS monitor electrolytes --Chest pain; with multiple risk factors Diabetes mellitus, dyslipidemia, history of tobacco use, age cardiology note reviewed cont. per. cardiology recommendations aspirin, nitrates and statins, Pain medications --Acute kidney injury; improving 2/2 volume depletion Gentle hydration, monitor renal function avoid nephrotoxins Nephrology consult if no improvement --Hypernatremia; recommend free water start 1/2 NS Closely monitor electrolytes --Dyslipidemia; cont. Lipitor 40 mg nightly low-cholesterol diet --Mild leukocytosis; likely reactive trending down Probably secondary to dehydration, check for infectious process patient has no fever, chest x-ray no acute abnormality Urine analysis no evidence of UTI, CT abdomen no evidence of infectious process blood and urine cultures - no growth so far will monitor --Cocaine use; Patient's chest pain probably related to cocaine use Strongly counseled the patient to quit recreational drug use --Ongoing tobacco use; Smoking cessation counseling done Advised nicotine patch as needed --DVT prophylaxis; Placed on Lovenox We will closely monitor the patient and adjust the management as needed Plan of care discussed with the patient and nurse 04/01/2020. If cardiology with no plans of cardiac evaluation, we will likely discharge. 04/02/2020. Patient with no evidence of sepsis--leukocytosis resolved and patient afebrile. Cardiology ordered Covid testing. Inflammatory markers are normal. Await cardiology recommendations and anticipate discharge. 04/03/2020. Patient had Covid testing which was found to be negative. Patient was scheduled to have stress test evaluation completed by cardiology but patient left AMA. Dedicated discharge time 35 minutes Disposition: [id number] LEFT AGAINST MED ADVICE Exam - Constitutional Vitals: Temp Pulse Resp BP Pulse Ox 98.1 F 74 18 147/86 99 04/02/20 09:04 04/02/20 10:00 04/02/20 09:04 04/02/20 09:04 04/02/20 09:04 Plan Follow up with: [facility] [Provider Group] - 3-5 Days [facility] [Provider Group] - 3-5 Days [facility] [Outside] - 3-5 Days [facility], [Primary Care Provider] - 3-5 Days Forms: AMA Form, Work/School Release Form
== END 2020-04-02 16:58 | disposition left against medical advice (07) | DRG 637 ==
LOC: ED 18:58 → CC1 03-29 21:21 → 4A 03-30 10:51
PROVIDERS: ADMIT Internal Medicine Geriatric Medicine; ATTEND Hospitalist
DX: E11.00 Type 2 diabetes mellitus with hyperosmolarity without nonketotic hyperglycemic-hyperosmolar coma (NKHHC) (principal); N17.0 Acute kidney failure with tubular necrosis; E87.1 Hypo-osmolality and hyponatremia; E87.2 Acidosis; E87.0 Hyperosmolality and hypernatremia; R07.9 Chest pain, unspecified; T40.5X5A Adverse effect of cocaine, initial encounter; F17.200 Nicotine dependence, unspecified, uncomplicated; E86.0 Dehydration; D72.829 Elevated white blood cell count, unspecified; E78.5 Hyperlipidemia, unspecified; Z79.899 Other long term (current) drug therapy; Z79.82 Long term (current) use of aspirin; Z79.4 Long term (current) use of insulin; Z79.891 Long term (current) use of opiate analgesic
CPT/HCPCS: 36415; 71045; 74176; 80048; 80053; 80061; 80307; 81001; 82550; 82553; 82728; 82805; 82962; 83036; 83615; 83735; 84100; 84145; 84484; 85007; 85025; 85027; 85379; 85610; 85730; 86140; 87040; 87086; 90471; 93005; 93306; 96372; 96374; 96375; 99406; G0378; A9270-GY; J1170; J1650; J1815; J2270; J2405; J7030; U0003